=== PATIENT | female | born 1985 | race Caucasian/White ===

== ENCOUNTER 2021-02-14 08:27 | Outpatient (CLI) | payer MEDICARE, MEDICAID, SELFPAY ==
--- NOTE | 2021-02-14 08:45 | MR_ITS ---
WS: [id number] MRI CERVICAL SPINE with and without contrast. HISTORY: M48.00 - Spinal stenosis, site unspecified COMPARISON: None available. Technique: Multiplanar, multisequence pre and post contrast imaging of the cervical spine. Mild straightening of the normal cervical lordosis. No marrow edema or fracture. Signal within the cervical cord is normal. Visualized posterior fossa is unremarkable. Craniocervical junction, C1 and C2 relationship, odontoid process and soft tissues are normal. C2-C3: Normal. C3-C4: Shallow central disc protrusion. C4-C5: There is o small RIGHT paracentral disc protrusion with slight contact and deformity the ventr al thecal sac. Small bilateral foraminal osteophytes with mild stenosis. C5-C6: Shallow central disc protrusion and mild disc bulging and osteophytosis. C6-C7: Mild annular disc bulging. No stenosis. C7-T1: Tiny central disc protrusion. Paravertebral soft tissues are normal. No adenopathy. No enhancing masses are identified. On the post contrast imaging no enhancing masses are identified. Normal signal within the cord and vertebral bodi es. MR/MR cervical spine wo/w [id number] IMPRESSION: 1. No significant central stenosis. 2. No enhancing masses. 3. RIGHT paracentral disc protrusion contacting the RIGHT lateral thecal sac w ith mild stenosis. 4. Mild bilateral foraminal stenosis at C4-5 due to disc osteophyte disease.
--- NOTE | 2021-02-14 09:30 | MR_ITS ---
WS: [id number] MRI LUMBAR SPINE WITH AND WITHOUT CONTRAST. HISTORY: M48.00 - Spinal stenosis, site unspecified. History of chordoma removed. Six-month checkup. Bilateral leg numbness and tingling. COMPARISON: None available. TECHNIQUE: Sagittal and axial multisequence imaging is submitted. Postcontrast postcontrast imaging a lso performed. Normal lumbar alignment. There is increased T1 and T2 signal within L2, L3 and L4. Although no histor y was provided this may be secondary to fatty marrow replacement from radiation treatment. There is n o significant amount of enhancement. On the postcontrast images there is some very minimal enhancemen t within the L3 and L4 vertebral bodies. Mild disc space narrowing and desiccation at L3-4 and L4-5. Conus terminates normally at L1-2 disc level. L1-L2: Normal. L2-L3: Normal. L3-L4: Mild annular disc bulging with ligamentum flavum and facet arthritis. There is fluid in the RI GHT facet joint. Moderate narrowing of the LEFT foramen. Suspect there is a disc protrusion in the LE FT foramen contributing to the stenosis. L4-L5: Mild annular disc bulge with a central disc protrusion. Disc protrusion and bulging is contact ing the L5 nerve root but not displacing the nerve roots. Mild ligamentum flavum hypertrophy and face t arthritis. Very mild narrowing of the foramen. L5-S1: Mild annular disc bulge without stenosis. On the postcontrast imaging there is no enhancement within the thecal sac or in the epidural region. No lymph nodes noted in the visualized retroperitoneum. Cystic mass noted in the LEFT adnexa measures 3.0 cm. MR/MR lumbar spine wo/w con [id number] IMPRESSION: 1. As per history prior surgery for chordoma. There are no prior studies avail able for comparison or review. 2. Marrow fatty replacement changes in L2, L3 and L4 probably from prior radia tion. Again, this history of prior treatment has not been provided. 3. No enhancing masses are identified. 4. Moderate LEFT foraminal narrowing at L3-4 with a suspected disc protrusion in the LEFT foramen. 5. Mild disc contact on the L5 nerve roots bilaterally without significant ana maria nosis. 6. Mild central disc protrusion at L4-5. 7. If prior imaging studies become available for review an addendum can be sub mitted. Recommend continue MRI serial follow-up.
[2021-02-14] MEDS: gadobenate dimeglumine 20 mL vial IV (10:03)
== END 2021-02-14 08:28 | disposition home or self-care (01) ==
PROVIDERS: Visit Provider Family Medicine
DX: M51.26 Other intervertebral disc displacement, lumbar region (principal); M50.20 Other cervical disc displacement, unspecified cervical region; M48.02 Spinal stenosis, cervical region; M25.78 Osteophyte, vertebrae
CPT/HCPCS: 72156; 72158; A9577

== ENCOUNTER 2021-02-14 19:15 | Emergency (ER) | payer MEDICARE, MEDICAID, SELFPAY ==
[2021-02-14 19:24] VITALS: BP 137/95; PULSE 86; RESP 18; TEMP 36.4; O2SAT 98; BMI 45.7
--- NOTE | 2021-02-14 19:29 | XRR_ITS ---
PROCEDURE INFORMATION: Exam: XR Right Foot Exam date and time: 02/14/2021 7:32 PM Age: 36 years old Clinical indication: Patient HX: Right foot pain x today, no known injury. HX spinal cancer. TECHNIQUE: Imaging protocol: XR Right foot. Views: 3 or more views. COMPARISON: No relevant prior studies available. FINDINGS: Bones/joints: No acute fractures. Joint spaces have anatomic alignment. There is a corticated bone fragment at the dorsal margin of the navicular bone which may represent sequela of old trauma or arthritis. No bone erosion. Soft tissues: Normal. XR/XR foot RT min 3V* [id number] IMPRESSION: No acute findings.
--- NOTE | 2021-02-14 19:31 | W.ED.EXTPRO ---
HPI - Extremity Problem General: Chief complaint: Extremity Injury, Lower Stated complaint: foot pain Time Seen by Provider: 02/14/21 19:27 History of Present Illness: HPI Narrative: 36-year-old female comes in today with complaints of right foot pain. Patient reports inability to bear weight due to pain. Patient does have a history of a prior fracture to the foot. Patient also has a history of spinal cancer. Patient reports no injury just awakened this morning and was unable to bear weight due to pain. Patient reports this is similar to the previous episode she had when she had fractured her foot before. MD Complaint: extremity pain Pain Consistency: intermittent Location: right and lower extremity Quality: aching Radiation: proximal Relieving factors: rest Exacerbating factors: weight bearing Associated symptoms: Reports no associated symptoms Review of Systems General: Reports: 10 or more systems reviewed and unremarkable except in HPI and below Musc: Reports: other (Right foot pain.) [facility] PFSH: Medical History (Updated 02/14/21 @ 20:21 by BRADY Garcia) Depression Gastro-esophageal reflux disease without esophagitis Hypertension Hypothyroidism Normal colonoscopy (~2011) Obesity Spinal stenosis Surgical History (Updated 01/01/21 @ 15:51 by Padmini Laird MD) H/O gastric bypass (~2011) History of augmentation of right breast (~2001) History of back surgery (~2010) History of cholecystectomy (~2003) History of tubal ligation (~2014) Physical Exam Const: COMMON NORMALS: no acute distress and patient oriented x3 GENERAL APPEARANCE: cooperative HENMT: COMMON NORMALS: normocephalic and Normal external nose present HEAD & SCALP: normal to inspection and normocephalic NOSE: Normal external nose present MOUTH: Normal oral and palatal mucosa present Neck/C-Spine: COMMON NORMALS: full ROM Chest: COMMONS NORMALS: normal inspection of the chest Resp: COMMON NORMALS: normal respiratory effort EFFORT & INSPECTION: Yes able to speak in complete sentences Cardio: COMMON NORMALS: regular rate and regular rhythm RATE: regular rate RHYTHM: regular rhythm Extremity: NARRATIVE EXTREMITY EXAM: Tenderness noted to the sole of the right foot at the base of the calcaneus. Neuro: COMMON NORMALS: patient oriented x3 and moves all extremities Psych: COMMON NORMALS: mental status grossly normal and cooperative Skin: COMMON NORMALS: no rashes or lesions noted GENERAL SKIN EXAM: no rashes or lesions noted Course Vital Signs: Vital signs: Vital Signs Temperature 97.6 F 02/14/21 19:24 Pulse Rate 85 02/14/21 19:59 Respiratory Rate 16 02/14/21 19:59 Blood Pressure 129/97 02/14/21 19:59 Pulse Oximetry 100 02/14/21 19:59 MDM - Extremity (Nontraumatic) MDM Narrative: Medical decision making narrative: Patient comes in for evaluation of right foot pain. On exam there is notes no sign of ecchymosis or swelling. Tenderness is noted to the medial bottom of the foot. Differential diagnosis includes fracture, sprain, arthralgia. X-ray noted no acute fractures. Reviewed exam with patient with recommendations for treatment and follow-up. Patient reported understanding. Discharge Plan Discharge Patient Disposition: Home Clinical Impression: Acute pain of right foot Condition: Stable Prescriptions: No Action tizanidine 4 mg tablet 4 mg PO TID PRN (Reason: muscle spasticity) Qty: 90 RF: 4 lidocaine 5 % ointment 1 applic topical TID Qty: 35.44 RF: 3 oxycodone 10 mg tablet 10 mg PO BID PRN (Reason: pain) 30 Days Qty: 60 RF: 0 gabapentin 800 mg tablet 800 mg PO TID@07,,19 RF: 0 Synthroid 50 mcg tablet 50 mcg PO DAILY@0700 RF: 0 Singulair 10 mg tablet 10 mg PO DAILY@1900 RF: 0 hydrochlorothiazide 25 mg tablet 25 mg PO DAILY@0700 RF: 0 Claritin 10 mg tablet 10 mg PO DAILY@0700 RF: 0 duloxetine 60 mg capsule,delayed release(DR/EC) 60 mg PO BID@0700,1900 RF: 0 cholecalciferol (vitamin D3) 1,250 mcg (50,000 unit) capsule See Rx Instructions .ROUTE .COMPLEX RF: 0 Discharge Orders: Discharge ED (Routine); Ordered 02/14/21 Ordered By: Renzo Arambula Discharge Diet: Usual diet Discharge Activity: Increase activity as tolerated Patient Instructions: Arthralgia (ED), Opioid Safety Activity Restrictions/Additional Instructions: Use crutches until he can bear weight comfortably on the foot. Wear good supportive shoe or the postop shoe for protection of the foot. Use acetaminophen and ibuprofen for pain. Use ice for further pain relief. Follow-up with primary care as needed for further recommendations. Return to the emergency department for new concerns. Coding Level of Care Code ED Pickling Machine Operator for Chg Fwd Exam Comprehensive
[2021-02-14 19:59] VITALS: BP 129/97; PULSE 85; RESP 16; O2SAT 100
== END 2021-02-14 21:32 | disposition home or self-care (01) ==
PROVIDERS: Emergency Provider Nurse Practitioner Family
DX: M79.671 Pain in right foot (principal); I10 Essential (primary) hypertension
CPT/HCPCS: 73630; 99282; L4361

== ENCOUNTER 2021-03-05 14:49 | Outpatient (CLI) | payer MEDICARE, MEDICAID, SELFPAY ==
--- NOTE | 2021-03-05 14:59 | MR_ITS ---
WS: [id number] INDICATION: Right foot pain for 2 weeks TECHNIQUE: MR of the right foot without gadolinium enhancement sagittal PD, axial T1, axial PD, axial T2, axial STIR, sagittal STIR, sagittal T1 fat sat. Coronal PD and coronal T2 fat sat. Some images d egraded by patient motion. FINDINGS: Normal ankle mortise. Normal medial and lateral malleolus. Normal talar dome. Metatarsals a re normal in appearance. Distal Achilles is normal in appearance. Normal plantar aponeurosis. Normal talocalcaneal and talonavicular articulation. Hypertrophic spurring at the dorsal navicular. Cuboid i s normal in appearance. Extensor and flexor compartment tendons appear normal. Normal peroneal tendon sheaths. Mild degenerative arthritis in the midfoot and forefoot. No other significant findings. MR/MR foot RT wo con* [id number] IMPRESSION: 1. Moderate diffuse soft tissue edema right ankle. 2. Normal ankle mortise. Normal bone marrow signal in the medial and lateral m alleolus. No acute fractures. 3. Distal Achilles is normal in appearance. 4. Normal extensor and flexor compartment tendons. 5. Dorsal hypertrophic spurring at the navicular. 6. Moderate degenerative arthritis in the midfoot and forefoot. 7. No other significant findings.
== END 2021-03-05 14:50 | disposition home or self-care (01) ==
PROVIDERS: Visit Provider Family Medicine
DX: M79.671 Pain in right foot (principal); M19.071 Primary osteoarthritis, right ankle and foot; R60.0 Localized edema
CPT/HCPCS: 73718

== ENCOUNTER → 2021-03-20 10:39 | Outpatient (BNVA) | payer MEDICARE, MEDICAID, SELFPAY | PROVIDERS: PCP Family Medicine; Referring Provider Family Medicine; Visit Provider Anesthesiology | DX: M54.5 Low back pain (principal); C41.2 Malignant neoplasm of vertebral column; M48.00 Spinal stenosis, site unspecified; M54.9 Dorsalgia, unspecified; M21.371 Foot drop, right foot; Z98.890 Other specified postprocedural states; F17.210 Nicotine dependence, cigarettes, uncomplicated; Z79.891 Long term (current) use of opiate analgesic; Z71.6 Tobacco abuse counseling | CPT/HCPCS: 99204 ==

== ENCOUNTER → 2021-04-05 10:42 | Outpatient (BNVA) | payer MEDICARE, MEDICAID, SELFPAY | PROVIDERS: PCP Family Medicine; Visit Provider Family Medicine | DX: G43.909 Migraine, unspecified, not intractable, without status migrainosus (principal); E55.9 Vitamin D deficiency, unspecified; I10 Essential (primary) hypertension; E03.9 Hypothyroidism, unspecified; K58.1 Irritable bowel syndrome with constipation | CPT/HCPCS: 80053; 80061; 82306; 84443; 85025 ==

== ENCOUNTER → 2021-04-18 14:02 | Outpatient (BNVA) | payer MEDICARE, MEDICAID, SELFPAY | PROVIDERS: PCP Family Medicine; Visit Provider Anesthesiology | DX: M54.5 Low back pain (principal); M48.00 Spinal stenosis, site unspecified; M21.371 Foot drop, right foot; Z79.891 Long term (current) use of opiate analgesic; Z98.890 Other specified postprocedural states | CPT/HCPCS: 99213 ==

== ENCOUNTER 2021-04-24 06:00 | Outpatient (RCR) | payer MEDICARE, MEDICAID, SELFPAY | END 2021-05-15 23:59 | disposition home or self-care (01) | LOC: TPT 06:00 | PROVIDERS: PCP Family Medicine; Referring Provider Podiatrist Foot & Ankle Surgery; Visit Provider Podiatrist Foot & Ankle Surgery | DX: M21.371 Foot drop, right foot (principal) | CPT/HCPCS: 97110; 97116; 97162 ==

== ENCOUNTER → 2021-04-27 10:27 | Outpatient (BNVA) | payer MEDICARE, MEDICAID, SELFPAY | PROVIDERS: PCP Family Medicine; Visit Provider Nurse Practitioner Family | DX: D64.9 Anemia, unspecified (principal) | CPT/HCPCS: 85025 ==

== ENCOUNTER 2021-05-11 05:37 | Outpatient (RCR) | payer MEDICARE, MEDICAID, SELFPAY ==
[2021-05-01 14:55] LABS: Alanine Aminotransferase 9 U/L (0-33); Albumin Level 3.8 g/dL (3.5-5.2); Alkaline Phosphatase 103 IU/L (35-105); Anion Gap 13.7 (5-19); Aspartate Amino Transferase 12 U/L (0-32); Blood Urea Nitrogen 16 mg/dL (6-20); Calcium 8.9 mg/dL (8.5-10.5); Carbon Dioxide 21 mmol/L (22-29); Chloride 103 mmol/L (98-107); Ferritin 7 ng/mL (15-150); Globulin 3.1 g/dL (1.3-4.6); Glomerular Filtration Rate 80.3 mL/min (90-130); Glucose 78 mg/dL (65-115); Iron 19 ug/dL (37-145); Osmolality Calculated 278 mOsm/kg (285-295); Percent Saturation 4.8 % (20-50); Potassium 3.7 mmol/L (3.5-5.1); Sodium 134 mmol/L (136-145); Total Bilirubin 0.2 mg/dL (0.15-1.2); Total Iron Binding Capacity 394 mcg/dl; Total Protein 6.9 g/dL (6.6-8.7); Unsaturated Iron Binding 375 ug/dL (112-347)
[2021-05-01 15:06] LABS: Basophils # 0.1 10^3/uL (0.0-0.1); Basophils % 0.6 %; Eosinophils # 0.1 10^3/uL (0.0-0.8); Eosinophils % 1.1 %; Hematocrit 29.5 % (37.0-47.0); Hemoglobin 8.7 g/dL (11.5-15.3); Lymphocytes # 2.8 10^3/uL (0.8-4.8); Lymphocytes % 25.9 %; Mean Corpuscular HGB Conc 29.5 g/dL (30.0-36.0); Mean Corpuscular Hemoglobin 23.4 pg (28.0-34.0); Mean Corpuscular Volume 79.3 fl (81-99); Mean Platelet Volume 10.8 fL (7.4-10.4); Monocytes # 0.8 10^3/uL (0.2-0.9); Monocytes % 7.1 %; Neutrophils # 6.89 10^3/uL (1.8-7.7); Neutrophils % 64.9 %; Nucleated Red Blood Cells % 0 %; Platelet Count 296 10^3/cmm (130-400); Red Blood Count 3.72 10^6/uL (4.1-5.3); Red Cell Distribution Width 17.2 % (12.1-15.1); White Blood Count 10.6 10^3/uL (4.0-10.0)
[2021-05-01 15:09] LABS: Vitamin B12 222 pg/mL (232-1245)
[2021-05-01 15:11] LABS: Folate Level 3.5 ng/mL (4.8-37.3)
--- NOTE | 2021-05-01 17:05 | ONC CON_ITS ---
Dr. Llanos New Patient Note Patient: Gin Correa Unit #: [id number]: [id number] Dicatated By: Jan Llanos M.D.Date of Visit: May 01, 2021 Onc MED New Patient/Consult Referring Physician: Dr. MEGA CORTES D.O. History of Present Illness: Ms. Gin Correa, is a 36-year-old female with history of gastric bypass surgery in 2011 for weight reduction, as per patient subsequently she developed anemia required iron infusion in 2014 and then again in 2016, patient was also on parenteral B12 supplement till November 2020, then she moved to [place] from [place],. As per patient she has been feeling weak and tired which is progressive in nature and now by the end of the day she feels exhausted and also experience pins-like feeling in her feet, feel better when she is off the feet. 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, as per patient she is scheduled to see physician in June 2021. Patient also has history of dysfunctional uterine bleeding, as per patient she usually has menstrual periods twice a month but denies any melena or hematochezia denies any hemoptysis or hematemesis denies any jaundice denies any night sweats denies any recurrent fever denies any peripheral lymphadenopathy or abdominal fullness denies any hematuria or dysuria Denies any numbness and fingertips, denies any chest pain but dyspnea exertion and palpitation on exertion^ Smoke about half a pack a day and consume alcohol occasionally] Past Medical History: Ms. Ashton medical history consists of back pain, chordoma, depression, gastroesophageal reflux disease, hypertension, hypothyroidism, right foot drop, and spinal stenosis. Past Surgical History: Ms. Ashton surgical/procedural history consists of tubal ligation in 2014, gastric bypass in 2011, back surgery in 2010, cholecystectomy in 2003, and right breast augmentation in 2001. Medications: Atenolol (25 mg) Tablet Oral daily, Cholecalciferol Capsule Oral on ,, DULoxetine HCl (60 mg) Capsule Delayed Release Particles Oral b.i.d., Esomeprazole Magnesium (40 mg) Capsule Delayed Release Oral daily, Gabapentin (800 mg) Tablet Oral four times a day, hydroCHLOROthiazide (12.5 mg) Tablet Oral daily, Levothyroxine Sodium (50 mcg) Tablet Oral daily, Lidocaine (0.5 %) Gel (jelly) Topical t.i.d., Linzess (145 mcg) Capsule Oral daily, Loratadine (10 mg) Capsule Oral daily, Montelukast Sodium (10 mg) Tablet Oral daily, oxyCODONE HCl (10 mg) Tablet Oral b.i.d. PRN, tiZANidine HCl (4 mg) Tablet Oral t.i.d. PRN, Topiramate (100 mg) Tablet Oral daily Allergies: Aspirin, Cephalexin, fentaNYL, and Ondansetron HCl. Social History: Ms. Correa is . She is a daily smoker who smokes 0.5 packs/day. She has no history of drinking. She has indicated exposure to the following products: cigarettes. Family History: Ms. Correa's mother is alive. Ms. Correa's father is alive. Ms. Correa has 2 brothers: 2 alive. She has 2 sisters: 2 alive. Review Of Symptoms: Review of Systems is not available for this patient. Vital Signs: Performed on May 01, 2021 16:26: 8, 5, 48.33 (HIGH), 2.10 sq.m, 61 in, 97 %, 84 /min, 18 /min, 117/76 mm(hg), 96.3 F (LOW), and 255.8 lbs (HIGH). Performance Status: 0 - Fully active, able to carry on all predisease activities without restrictions. (ECOG) Physical Examination: ENMT - No mouth sores, no thrush, no jaundice no cervical lymphadenopathy, Respiratory - Lungs are clear to auscultation, Cardiovascular - Regular rate and rhythm of heart, Abdomen - Soft, bowel sounds present, Extremities - No visible edema. Lab/Imaging: Most recent lab results are not available for this patient. 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 Other possibility could be chronic blood loss due to dysfunctional uterine bleeding. B12 deficiency, again due to malabsorption due to gastric bypass. 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 Chronic back pain, now being followed in pain clinic History of augmentation of right breast History of tubal ligation Hypothyroidism Right foot drop/spinal stenosis Probably due to chordoma involving L2-4 or related surgery Plan: Discussed with patient regarding her labs white blood count 10.6 hemoglobin 8.7 g medical 29.5 platelets 296,000 MCV 79.3 with a normal differential CMP within normal limit except sodium 134 iron studies shows ferritin 7, iron saturation 4.8%, iron 19, TIBC 394, vitamin B12 222 Clinically, patient doing reasonably well now with mild to moderate symptoms due to progressive iron deficiency anemia which is multifactorial including 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 Patient was advised to quit smoking and was offered any assistance she may need As far as dysfunctional uterine bleeding is concerned, will refer her to OCCUPATIONAL THERAPY PROFESSOR for evaluation, patient said she had colonoscopy done in the last 5 to 7 years and it was unremarkable, will also check her stool for occult bleeding if it is positive, will consider colonoscopy/EGD evaluation., Patient was advised to take it easy until her iron stores and B12 stores replenished. Signed By: Jan Llanos M.D. <<Signature on File>>
[2021-05-04] MEDS: cyanocobalamin 1,000 mcg/mL SDV 1000 MCG SUBCUT (10:40)
[2021-05-04] MEDS: ferric carboxy (PYXIS) 750 mg/15 mL INJ IV (10:40)
[2021-05-04] MEDS: sodium chloride 0.9% 100 mL Bag IV (10:40)
[2021-05-08 21:17] LABS: Copper Level 161 mcg/dL (70-175); Zinc Level, Serum or Plasma 67 mcg/dL (60-130)
[2021-05-11] MEDS: ferric carboxy (PYXIS) 750 mg/15 mL INJ IV (09:15)
[2021-05-11] MEDS: sodium chloride 0.9% (100 ml) 100 ML 540 ML (09:15)
[2021-05-11] MEDS: sodium chloride 0.9% (100 ml) 100 ML 375 ML IV (09:15)
[2021-05-11] MEDS: cyanocobalamin 1,000 mcg/mL SDV 1000 MCG IM (09:17)
== END 2021-05-15 23:59 | disposition home or self-care (01) ==
LOC: ONCMED 05:37
PROVIDERS: PCP Family Medicine; Visit Provider Internal Medicine Hematology & Oncology
DX: D50.9 Iron deficiency anemia, unspecified (principal); D51.9 Vitamin B12 deficiency anemia, unspecified; K90.9 Intestinal malabsorption, unspecified; G62.9 Polyneuropathy, unspecified; M54.5 Low back pain; G89.29 Other chronic pain; E03.9 Hypothyroidism, unspecified; M21.371 Foot drop, right foot; M48.061 Spinal stenosis, lumbar region without neurogenic claudication; Z90.11 Acquired absence of right breast and nipple; Z79.899 Other long term (current) drug therapy
CPT/HCPCS: 36415; 80053; 82525; 82607; 82728; 82746; 83540; 83550; 84630; 85025; 96365; 96372; 96374; 99204; J1439; J3420

== ENCOUNTER 2021-05-25 05:51 | Outpatient (RCR) | payer MEDICARE, MEDICAID, SELFPAY ==
[2021-05-18] MEDS: cyanocobalamin 1,000 mcg/mL SDV 1000 MCG IM (11:15)
[2021-05-25] MEDS: cyanocobalamin 1,000 mcg/mL SDV 1000 MCG SUBCUT (11:30)
== END 2021-06-14 23:59 | disposition home or self-care (01) ==
LOC: ONCMED 05:51
PROVIDERS: PCP Family Medicine; Visit Provider Internal Medicine Hematology & Oncology
DX: D50.9 Iron deficiency anemia, unspecified (principal); D51.9 Vitamin B12 deficiency anemia, unspecified; Z79.899 Other long term (current) drug therapy
CPT/HCPCS: 96372; J3420

== ENCOUNTER → 2021-05-29 11:18 | Outpatient (BNVA) | payer MEDICARE, MEDICAID, SELFPAY | PROVIDERS: PCP Family Medicine; Referring Provider Internal Medicine Hematology & Oncology; Visit Provider Nurse Practitioner Women's Health | DX: N93.9 Abnormal uterine and vaginal bleeding, unspecified (principal); R10.2 Pelvic and perineal pain; D50.8 Other iron deficiency anemias; C41.0 Malignant neoplasm of bones of skull and face | CPT/HCPCS: 88175 ==

== ENCOUNTER → 2021-06-08 08:59 | Outpatient (BNVA) | payer MEDICARE, MEDICAID, SELFPAY | PROVIDERS: PCP Family Medicine; Visit Provider Nurse Practitioner Women's Health | DX: N93.9 Abnormal uterine and vaginal bleeding, unspecified (principal) | CPT/HCPCS: 76830 ==

== ENCOUNTER → 2021-06-13 08:16 | Outpatient (BNVA) | payer MEDICARE, MEDICAID, SELFPAY | PROVIDERS: PCP Family Medicine; Visit Provider Anesthesiology | DX: M54.5 Low back pain (principal); M48.00 Spinal stenosis, site unspecified; M21.371 Foot drop, right foot; Z98.890 Other specified postprocedural states; F17.210 Nicotine dependence, cigarettes, uncomplicated; Z79.891 Long term (current) use of opiate analgesic | CPT/HCPCS: 99213 ==

== ENCOUNTER → 2021-06-21 10:16 | Outpatient (BNVA) | payer MEDICARE, MEDICAID, SELFPAY | PROVIDERS: PCP Family Medicine; Visit Provider Nurse Practitioner Women's Health | DX: N93.9 Abnormal uterine and vaginal bleeding, unspecified (principal) | CPT/HCPCS: 88305 ==

== ENCOUNTER 2021-06-22 06:31 | Outpatient (RCR) | payer MEDICARE, MEDICAID, SELFPAY ==
[2021-06-22 09:53] LABS: Basophils # 0.1 10^3/uL (0.0-0.1); Basophils % 0.5 %; Eosinophils # 0.1 10^3/uL (0.0-0.8); Eosinophils % 1.2 %; Hematocrit 43.5 % (37.0-47.0); Hemoglobin 13.8 g/dL (11.5-15.3); Lymphocytes # 2.5 10^3/uL (0.8-4.8); Lymphocytes % 24.6 %; Mean Corpuscular HGB Conc 31.7 g/dL (30.0-36.0); Mean Corpuscular Hemoglobin 28.8 pg (28.0-34.0); Mean Corpuscular Volume 90.8 fl (81-99); Mean Platelet Volume 10.8 fL (7.4-10.4); Monocytes # 0.6 10^3/uL (0.2-0.9); Monocytes % 6.2 %; Neutrophils # 6.89 10^3/uL (1.8-7.7); Neutrophils % 67.2 %; Nucleated Red Blood Cells % 0 %; Platelet Count 272 10^3/cmm (130-400); Red Blood Count 4.79 10^6/uL (4.1-5.3); Red Cell Distribution Width 23.1 % (12.1-15.1); White Blood Count 10.2 10^3/uL (4.0-10.0)
[2021-06-22 10:36] LABS: Ferritin 189 ng/mL (15-150); Iron 59 ug/dL (37-145); Percent Saturation 22.5 % (20-50); Total Iron Binding Capacity 262 mcg/dl; Unsaturated Iron Binding 203 ug/dL (112-347)
[2021-06-22 10:51] LABS: Vitamin B12 430 pg/mL (232-1245)
--- NOTE | 2021-06-22 12:34 | ONC FU_ITS ---
Dr. Llanos follow up note Patient: Gin Correa Unit #: [id number]: [id number] Dicatated By: Jan Llanos M.D.Date of Visit:Jun 22, 2021 Onc Med Follow-up/Prog Note History of Present Illness: Ms. Gin Correa, is a 36-year-old female with history of gastric bypass surgery in 2011 for weight reduction, as per patient subsequently she developed anemia required iron infusion in 2014 and then again in 2016, patient was also on parenteral B12 supplement till November 2020, then she moved to [place] from [place],. As per patient she has been feeling weak and tired which is progressive in nature and now by the end of the day she feels exhausted and also experience pins-like feeling in her feet, feel better when she is off the feet. 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 Patient also has history of dysfunctional uterine bleeding, as per patient she usually has menstrual periods twice a month but denies any melena or hematochezia denies any hemoptysis or hematemesis denies any jaundice denies any night sweats denies any recurrent fever denies any peripheral lymphadenopathy or abdominal fullness denies any hematuria or dysuria Denies any numbness and fingertips, denies any chest pain but dyspnea exertion and palpitation on exertion Came for follow-up, denies any specific complaints, more energetic since parenteral iron infusion. Patient recently underwent [employer] evaluation for dysfunctional uterine bleeding, recently underwent endometrial biopsy, report is pending, as per patient she was offered progesterone to control vaginal bleeding but now she is considering hysterectomy. Medications: Atenolol (25 mg) Tablet Oral daily, Cholecalciferol Capsule Oral on ,Farah, DULoxetine HCl (60 mg) Capsule Delayed Release Particles Oral b.i.d., Esomeprazole Magnesium (40 mg) Capsule Delayed Release Oral daily, Gabapentin (800 mg) Tablet Oral four times a day, hydroCHLOROthiazide (12.5 mg) Tablet Oral daily, Levothyroxine Sodium (50 mcg) Tablet Oral daily, Lidocaine (0.5 %) Gel (jelly) Topical t.i.d., Linzess (145 mcg) Capsule Oral daily, Loratadine (10 mg) Capsule Oral daily, Montelukast Sodium (10 mg) Tablet Oral daily, oxyCODONE HCl (10 mg) Tablet Oral b.i.d. PRN, tiZANidine HCl (4 mg) Tablet Oral t.i.d. PRN, Topiramate (100 mg) Tablet Oral daily Allergies: Aspirin, Cephalexin, fentaNYL, and Ondansetron HCl. Review of Systems: Review of Systems is not available for this patient. Vital Signs: Performed on Jun 22, 2021 09:47 Height - 61.00 in Weight - 246.6 lbs (LOW) BSA - 2.06 sq.m BMI - 46.59 (HIGH) Temperature - 97.3 F (LOW) Pulse - 70 /min Respiration - 18 /min BP - 114/80 mm(hg) O2 Sat - 99 % Pain - 6 Fatigue - 7 Performance Status: 0 - Fully active, able to carry on all predisease activities without restrictions. (ECOG) Physical Examination: ENMT - No mouth sores, no thrush, no jaundice, Respiratory - Lungs are clear to auscultation, Cardiovascular - Regular rate and rhythm of heart, Abdomen - Soft, bowel sounds present, Extremities - No visible edema. Lab/Imaging: Most recent lab results are not available for this patient. 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 Other possibility could be chronic blood loss due to dysfunctional uterine bleeding. B12 deficiency, again due to malabsorption due to gastric bypass. 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 Chronic back pain, now being followed in pain clinic History of augmentation of right breast History of tubal ligation Hypothyroidism Right foot drop/spinal stenosis Probably due to chordoma involving L2-4 or related surgery Plan: Discussed with patient regarding her labs white blood count 10.2 hemoglobin 13.8 hematocrit 43.5 platelets 272,000 iron studies shows iron saturation 22.5% compared to 4.8% prior to iron infusion ferritin 189 compared to 7 prior to infusion iron 59 TIBC 262, B12 430, zinc level was 67 copper was 161 Clinically, patient doing well, more energetic since Injectafer infusion, follow-up labs shows resolution of iron deficiency anemia, iron stores adequate, At this point, we will monitor her H&H and iron stores, patient will continue with B12 supplement on monthly basis and return to clinic in 2 months with CBC iron studies and B12 level As far as history of excessive vaginal bleeding is concerned, no hysterectomy is under consideration. 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 <<Signature on File>>
== END 2021-07-15 23:59 | disposition home or self-care (01) ==
LOC: ONCMED 06:31
PROVIDERS: PCP Family Medicine; Visit Provider Internal Medicine Hematology & Oncology
DX: D50.9 Iron deficiency anemia, unspecified (principal); K90.9 Intestinal malabsorption, unspecified; D51.9 Vitamin B12 deficiency anemia, unspecified; G62.9 Polyneuropathy, unspecified; F17.210 Nicotine dependence, cigarettes, uncomplicated; E03.9 Hypothyroidism, unspecified; M21.371 Foot drop, right foot; Z85.89 Personal history of malignant neoplasm of other organs and systems; Z87.19 Personal history of other diseases of the digestive system; Z90.11 Acquired absence of right breast and nipple; Z98.51 Tubal ligation status
CPT/HCPCS: 36415; 82607; 82728; 83540; 83550; 85025; 96372; 99215; J3420

== ENCOUNTER → 2021-08-06 09:21 | Outpatient (BNVA) | payer MEDICARE, MEDICAID, SELFPAY | PROVIDERS: PCP Family Medicine; Visit Provider Obstetrics & Gynecology | DX: R32 Unspecified urinary incontinence (principal) | CPT/HCPCS: 81000 ==

== ENCOUNTER → 2021-08-15 12:38 | Outpatient (BNVA) | payer MEDICARE, MEDICAID, SELFPAY | PROVIDERS: PCP Family Medicine; Visit Provider Anesthesiology | DX: M54.50 Low back pain, unspecified (principal); M48.00 Spinal stenosis, site unspecified; E66.9 Obesity, unspecified; Z98.890 Other specified postprocedural states; Z68.42 Body mass index [BMI] 45.0-49.9, adult; Z79.891 Long term (current) use of opiate analgesic; F17.200 Nicotine dependence, unspecified, uncomplicated | CPT/HCPCS: 99213; 99214 ==

== ENCOUNTER 2021-09-25 13:22 | Outpatient (CLI) | payer MEDICARE, MEDICAID, SELFPAY ==
[2021-09-25 13:59] LABS: Basophils % 0.4 %; Eosinophils # 0.1 10^3/uL (0.0-0.8); Eosinophils % 1.1 %; Hematocrit 36.9 % (37.0-47.0); Hemoglobin 12.2 g/dL (11.5-15.3); Lymphocytes % 28.8 %; Mean Corpuscular HGB Conc 33.1 g/dL (30.0-36.0); Mean Corpuscular Hemoglobin 33.3 pg (28.0-34.0); Mean Corpuscular Volume 100.8 fl (81-99); Monocytes # 0.6 10^3/uL (0.2-0.9); Monocytes % 5.5 %; Neutrophils % 63.8 %; Nucleated Red Blood Cells % 0 %; Platelet Count 287 10^3/cmm (130-400); Red Blood Count 3.66 10^6/uL (4.1-5.3); White Blood Count 10.3 10^3/uL (4.0-10.0)
[2021-09-25 14:24] LABS: Alanine Aminotransferase 26 U/L (0-33); Albumin Level 4.1 g/dL (3.5-5.2); Alkaline Phosphatase 84 IU/L (35-105); Anion Gap 16.4 (5-19); Aspartate Amino Transferase 17 U/L (0-32); Blood Urea Nitrogen 14 mg/dL (6-20); Calcium 9.7 mg/dL (8.5-10.5); Carbon Dioxide 18 mmol/L (22-29); Chloride 108 mmol/L (98-107); Ferritin 117 ng/mL (15-150); Globulin 2.8 g/dL (1.3-4.6); Glomerular Filtration Rate 70.1 mL/min (90-130); Glucose 63 mg/dL (65-115); Iron 57 ug/dL (37-145); Osmolality Calculated 285 mOsm/kg (285-295); Percent Saturation 19.1 % (20-50); Potassium 4.4 mmol/L (3.5-5.1); Sodium 138 mmol/L (136-145); Total Bilirubin 0.2 mg/dL (0.15-1.2); Total Iron Binding Capacity 298 mcg/dl; Total Protein 6.9 g/dL (6.6-8.7); Unsaturated Iron Binding 241 ug/dL (112-347)
[2021-09-25 14:39] LABS: Vitamin B12 610 pg/mL (232-1245)
--- NOTE | 2021-09-25 16:10 | ONC FU_ITS ---
Dr. Llanos follow up note Patient: Gin Correa Unit #: [id number]: [id number] Dicatated By: Jan Llanos M.D.Date of Visit:Sep 25, 2021 Onc Med Follow-up/Prog Note History of Present Illness: Ms. Gin Correa, is a 36-year-old female with history of gastric bypass surgery in 2011 for weight reduction, as per patient subsequently she developed anemia required iron infusion in 2014 and then again in 2016, patient was also on parenteral B12 supplement till November 2020, then she moved to [place] from [place],. As per patient she has been feeling weak and tired which is progressive in nature and now by the end of the day she feels exhausted and also experience pins-like feeling in her feet, feel better when she is off the feet. 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 Patient also has history of dysfunctional uterine bleeding, as per patient she usually has menstrual periods twice a month but denies any melena or hematochezia denies any hemoptysis or hematemesis denies any jaundice denies any night sweats denies any recurrent fever denies any peripheral lymphadenopathy or abdominal fullness denies any hematuria or dysuria Denies any numbness and fingertips, denies any chest pain but dyspnea exertion and palpitation on exertion Came for follow-up, denies any specific complaints, no fever or chills, no nausea or vomiting, no diarrhea or constipation, tolerating parenteral monthly B12 supplement well, as per patient she is scheduled for hysterectomy on coming Friday. Denies any melena or hematochezia denies any mops hematemesis denies any jaundice denies any abdominal pain Medications: Atenolol (25 mg) Tablet Oral daily, Cholecalciferol Capsule Oral on ,Farah, DULoxetine HCl (60 mg) Capsule Delayed Release Particles Oral b.i.d., Esomeprazole Magnesium (40 mg) Capsule Delayed Release Oral daily, Gabapentin (800 mg) Tablet Oral four times a day, hydroCHLOROthiazide (12.5 mg) Tablet Oral daily, Levothyroxine Sodium (50 mcg) Tablet Oral daily, Lidocaine (0.5 %) Gel (jelly) Topical t.i.d., Linzess (145 mcg) Capsule Oral daily, Loratadine (10 mg) Capsule Oral daily, Montelukast Sodium (10 mg) Tablet Oral daily, oxyCODONE HCl (10 mg) Tablet Oral b.i.d. PRN, tiZANidine HCl (4 mg) Tablet Oral t.i.d. PRN, Topiramate (100 mg) Tablet Oral daily Allergies: Aspirin, Cephalexin, fentaNYL, and Ondansetron HCl. Review of Systems: Review of Systems is not available for this patient. Vital Signs: Performed on Sep 25, 2021 15:33 Height - 61.00 in Weight - 240.4 lbs (LOW) BSA - 2.04 sq.m BMI - 45.42 (HIGH) Temperature - 97.3 F (LOW) Pulse - 67 /min Respiration - 18 /min BP - 118/79 mm(hg) O2 Sat - 99 % Pain - 0 Fatigue - 5 Performance Status: 0 - Fully active, able to carry on all predisease activities without restrictions. (ECOG) Physical Examination: ENMT - No mouth sores, no sore throat, no jaundice, Respiratory - Lungs are clear to auscultation, Cardiovascular - Regular rate and rhythm of heart, Abdomen - Soft, bowel sounds present, Extremities - No visible edema. Lab/Imaging: Most recent lab results are not available for this patient. 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 Other possibility could be chronic blood loss due to dysfunctional uterine bleeding. B12 deficiency, again due to malabsorption due to gastric bypass. 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 Patient is scheduled for hysterectomy for heavy menstrual periods. She will return to clinic in 3 months with CBC, iron studies and B12 level in the meantime she will continue with monthly B12 supplements. Signed By: Jan Llanos M.D. <<Signature on File>>
== END 2021-09-25 13:23 | disposition home or self-care (01) ==
PROVIDERS: PCP Family Medicine; Visit Provider Internal Medicine Hematology & Oncology
DX: D50.9 Iron deficiency anemia, unspecified (principal); G62.9 Polyneuropathy, unspecified; E03.9 Hypothyroidism, unspecified; F17.210 Nicotine dependence, cigarettes, uncomplicated; Z79.899 Other long term (current) drug therapy; Z98.84 Bariatric surgery status
CPT/HCPCS: 36415; 80053; 82607; 82728; 83540; 83550; 85025; 99214

== ENCOUNTER → 2021-09-27 08:42 | Outpatient (BNVA) | payer MEDICARE, MEDICAID, SELFPAY | PROVIDERS: PCP Family Medicine; Visit Provider Obstetrics & Gynecology | DX: Z20.822 Contact with and (suspected) exposure to COVID-19 (principal); N93.9 Abnormal uterine and vaginal bleeding, unspecified | CPT/HCPCS: 87635 ==

== ENCOUNTER 2021-10-03 13:41 | Observation (INO) | payer MEDICARE, MEDICAID, SELFPAY ==
[2021-10-01 11:43] VITALS: BMI 44.4
[2021-10-01 13:34] LABS: Anion Gap 17.9 (5-19); Blood Urea Nitrogen 19 mg/dL (6-20); Calcium 8.9 mg/dL (8.5-10.5); Carbon Dioxide 20 mmol/L (22-29); Chloride 103 mmol/L (98-107); Glomerular Filtration Rate 62.1 mL/min (90-130); Glucose 67 mg/dL (65-115); Osmolality Calculated 285 mOsm/kg (285-295); Potassium 3.9 mmol/L (3.5-5.1); Sodium 137 mmol/L (136-145)
--- NOTE | 2021-10-01 17:07 | ANES.PREANE2 ---
Pre-Anesthetic Assessment Pre-Anesthetic Assessment: Height/Weight: Height 1.55 m Weight 106.594 kg Proposed Procedure: Operation Date: 10/03/21 08:50 Proposed Procedures p Total Vaginal Hysterectomy 30057/N93.9(Not Applicable) - Nick Tong MD Was Beta Lopez taken within 24 hours: Yes Was Clonidine taken within 24 hours: N/A Social: Social History: No alcohol Exam: Pre-Anes Outpt Exam: alert, oriented x 3 and regular rate & rhythm Airway: Submandibular: WNL Cervical ROM: WNL MP: 2 Dentition: Chipped CV/HEM: CV/HEM: Anemia and HTN GI: GI: GERD Metabolic: Metabolic: Morbid obesity and Thyroid Neuropsych: Neuropsych: REDDY and Neuropathy Anesthetic Plan: ASA status: 3 Anesthesia: General Risk of > 500 ml blood loss (7ml/kg in children): No PFSH Anesthesia PFSH: Medical History Back pain with history of spinal surgery Chordoma of clivus [facility]--- Tom Bruner MD. Depression Encounter for long-term opiate analgesic use Gastro-esophageal reflux disease without esophagitis Hypertension Hypothyroidism No pertinent past medical history neghx: dm,dvt/pe PCP: Jolly Laird Obesity Opioid contract exists Right foot drop Spinal stenosis Surgical History H/O gastric bypass (~2011) History of augmentation of right breast (~2001) saline implant History of back surgery (~2010) History of cholecystectomy (~2003) History of tubal ligation (~2014) Normal colonoscopy (~2011) Family History Family/Other Breast cancer Maternal Aunt--dx age 30's Diabetes Maternal and Paternal side in general Ovarian cancer Maternal Aunt--dx age 40's Thyroid disease Maternal side in general Father Heart disease Stroke Grandfather Heart disease Paternal Mother Hypercholesteremia Hypertension Thyroid disease Denies family history of Colon cancer Uterine cancer Data Anesthesia CBC & Chem 7: 10/01/21 11:50 Other Labs: Laboratory Results - last 48 hr 10/01/21 11:50 Sodium 137 Potassium 3.9 Chloride 103 Carbon Dioxide 20 L Anion Gap 17.9 BUN 19 Creatinine 1.0 H GFR Calculation 62.1 L Glucose 67 Calculated Osmolality 285 Calcium 8.9 Cardiac Studies: No Data to Display
[2021-10-03] VITALS (16 sets, daily range): BP systolic 94–127; BP diastolic 54–91; PULSE 54–77; RESP 10–21; TEMP 36.2–36.8; O2SAT 97–100
[2021-10-03 10:09] LABS: Add Urine Microscopic? NO; Charge for UA Resulting for Rev
[2021-10-03 10:16] LABS: Bilirubin Urine 1+ (Negative); Blood Urine Neg (Negative); Glucose Urine UA Norm (Normal); Ketones Urine 1+ (Negative); Leukocyte Esterase Urine Negative (Negative); Nitrate Urine Negative (Negative); Protein Urine Neg (Negative); Urine Appearance Clear (CLEAR); Urine Color Yellow (Yellow); Urobilinogen Urine 4+ mg/dL (Negative); pH Urine 7 (5-7)
[2021-10-03 10:18] LABS: OR HCG Qualitative Urine Negative (Negative)
[2021-10-03] MEDS: sodium chloride 0.9% 1,000 ML 30 ML IV (10:26)
[2021-10-03] MEDS: sodium chloride 0.9% 500 ML IV (10:26)
[2021-10-03] MEDS: scopolamine 1.5 Patch 1 PATCH TRANSDERMA (10:26)
[2021-10-03 10:47] LABS: Basophils % 0.4 %; Eosinophils # 0.1 10^3/uL (0.0-0.8); Hematocrit 38.5 % (37.0-47.0); Lymphocytes # 2.3 10^3/uL (0.8-4.8); Mean Corpuscular HGB Conc 33.8 g/dL (30.0-36.0); Mean Corpuscular Hemoglobin 32.8 pg (28.0-34.0); Mean Corpuscular Volume 97.2 fl (81-99); Mean Platelet Volume 11.1 fL (7.4-10.4); Monocytes # 0.5 10^3/uL (0.2-0.9); Monocytes % 5.1 %; Neutrophils # 7.34 10^3/uL (1.8-7.7); Neutrophils % 71.1 %; Nucleated Red Blood Cells % 0 %; Platelet Count 270 10^3/cmm (130-400); Red Blood Count 3.96 10^6/uL (4.1-5.3); Red Cell Distribution Width 13.5 % (12.1-15.1); White Blood Count 10.3 10^3/uL (4.0-10.0)
--- NOTE | 2021-10-03 10:51 | P.ANESUD_ITS ---
Pre-Anesthetic Update Pre-Anesthetic Assessment: Date of Surgery/Procedure: 10/03/21 Preop Daniela gnosis: Abnormal uterine bleeding/menorrhagia, chronic pelvic pain Proposed Procedure: Operation Date: 10/03/21 10:50 Proposed Procedures p Total Vaginal Hysterectomy 08264/N93.9(Not Applicable) - Nick Tong MD Any changes to Pre-Anesthetic Assessment?: No Last Intake: Intake Last Liquid Date 10/02/21 Last Liquid Time 23:00 Last Solid Date 10/02/21 Last Solid Time 23:00 Labs Last 48hrs: Short CBC 10/03/21 Range/Units 10:15 WBC 10.3 H (4.0-10.0) 10^3/ uL Hgb 13.0 (11.5-15.3) g/dL Hct 38.5 (37.0-47.0) % MCV 97.2 (81-99) fl Plt Count 270 (130-400) 10^3/c mm Neut % (Auto) 71.1 % Neut # (Auto) 7.34 (1.8-7.7) 10^3/u L BMP 10/01/21 11:50 Sodium 137 Potassium 3.9 Chloride 103 Carbon Dioxide 20 L BUN 19 Creatinine 1.0 H Glucose 67 Calcium 8.9 Urine 10/03/21 Range/Units 09:45 Urine Color Yellow (Yellow) Urine Appearance Clear (CLEAR) Urine pH 7 (5-7) Ur Specific Gravit y 1.010 (1.005-1.030) Urine Protein Neg (Negative) Urine Glucose (UA) Norm (Normal) Urine Ketones 1+ H (Negative) Urine Nitrate Negative (Negative) Urine Bilirubin 1+ H (Negative) Ur Leukocyte Diane ase Negative (Negative) Vitals: Temperature 97.1 F L 10/03/21 09:46 Temperature Source Temporal Artery S can 10/03/21 09:46 Pulse Rate 70 10/03/21 09:46 Respiratory Rate 20 H 10/03/21 09:46 Blood Pressure 127/85 10/03/21 09:46 Blood Pressure Joanna n 99 10/03/21 09:46 Pulse Oximetry 97 10/03/21 09:46 Oxygen Delivery Me thod 10/03/21 09:51 Exam: Pre-Anes Outpt Exam: alert, oriented x 3, clear to auscultation bilaterally and regular rate & rhythm Cardiac Studies: No Data to Display
[2021-10-03 11:08] LABS: Alanine Aminotransferase 16 U/L (0-33); Albumin Level 4.3 g/dL (3.5-5.2); Alkaline Phosphatase 88 IU/L (35-105); Anion Gap 15.3 (5-19); Aspartate Amino Transferase 10 U/L (0-32); Blood Urea Nitrogen 22 mg/dL (6-20); Calcium 8.7 mg/dL (8.5-10.5); Carbon Dioxide 22 mmol/L (22-29); Chloride 103 mmol/L (98-107); Globulin 2.6 g/dL (1.3-4.6); Glomerular Filtration Rate 62.1 mL/min (90-130); Glucose 82 mg/dL (65-115); Osmolality Calculated 286 mOsm/kg (285-295); Potassium 3.3 mmol/L (3.5-5.1); Sodium 137 mmol/L (136-145); Total Bilirubin 0.5 mg/dL (0.15-1.2); Total Protein 6.9 g/dL (6.6-8.7)
--- NOTE | 2021-10-03 11:32 | W.PM.OPSUD ---
Surgery/Procedure H&P Update DATE OF PROCEDURE: October 03, 2021 DATE H&P PERFORMED: 10/01/21 H&P UPDATE INFORMATION: I have reviewed H&P completed within last 30 days, I have examined patient prior to procedure and No changes to prior documentation PREOP DIAGNOSIS: Abnormal uterine bleeding/menorrhagia, chronic pelvic pain PLANNED PROCEDURE: Operation Date: 10/03/21 10:50 Proposed Procedures p Total Vaginal Hysterectomy 45713/N93.9(Not Applicable) - Nick Tong MD
[2021-10-03] MEDS: ceFOXitin 2,000 MG in sodium chloride 0.9% (plus) 50 ML 100 MG IV (11:41)
--- NOTE | 2021-10-03 12:52 | P.OP_ITS ---
Operative Report Date of procedure: October 03, 2021 Pre-op Diagnosis: Abnormal uterine bleeding/menorrhagia, chronic pelvic pain Post-op diagnosis: same Post-op Findings: Normal size uterus Procedure Done: Total vaginal hysterectomy Specimens removed/disposition: Uterus Pathology: Uterus Surgeon: Nick Tong MD Anesthesia: General Estimated blood loss (mL): 10 IV fluids (mL): 800 Urine output (mL): 100 Complications: None Condition: stable Disposition: PACU Procedure: After informed consent and risks, benefits, indications and alternatives reviewed with the patient was taken to the operating room. The patient was placed in dorsal lithotomy position prepped, and draped in the usual sterile fashion. The pre-procedure timeout verifying the correct patient, procedure, site and side, could not requirements was performed and acknowledge by the OR team. A Guzman catheter was placed. A Bookwalter vaginal retractor was placed into the vagina in usual manner visualize the cervix. Cervix was grasped with a single tooth tenaculum and circumferentially infiltrated with 2% Xylocaine with epinephrine. Then cervix was circumferentially incised with bovie and the bladder was dissected off the pubovesical cervical fascia anteriorly with a sponge stick and Metzenbaum scissors. The anterior peritoneal reflection was identified and the anterior cul-de-sac was entered sharply with Metzenbaum scissors. The same procedure was performed posteriorly and a posterior colpotomy was made through the posterior cul-de-sac space without difficulty and the posterior blade of the Bookwalter vaginal retractor was advanced posteriorly into the cul-de-sac. At this time, the left and right uterosacral ligaments were isolated and ligated with 0 Vicryl. The Enseal device was placed over the uterosacral ligaments on either side and was then used in a serial fashion up through the cardinal ligaments bilaterally cross-clamped, cut, and sealed with the Enseal device. Finally, the uterine arteries were cross-clamped, cut, sealed and ligated with the Enseal device. Hemostasis was assured. The broad ligaments were then serially clamped, sealed and cut with the Enseal device on both sides. Excellent hemostasis was visualized. Both cornua were clamped, sealed and cut with the Enseal device. Then the pedicles were then suture ligated with excellent hemostasis. The uterus was excised and submitted for pathologic evaluation. No other abnormalities were noted in the pelvic cavity. The peritoneum was then closed in a pursestring fashion with 0 Vicryl suture. The vaginal cuff angles were closed with [id number] #0 Vicryl suture on both sides and transfixed with the ipsilateral cardinal and uterosacral ligaments. The remainder of the vaginal cuff was closed with #0 Vicryl in a run rosetta locked fashion. At this time, instruments were removed from the vagina at hemostasis assured. Guzman catheter was then placed yielding clear toyin urine. The patient was taken out of dorsal lithotomy position and awakened from the general anesthesia. The patient tolerated the procedure well and was taken to the PACU recovery room in a stable condition. Sponge, lap, needle and instruments counts were correct x3.
--- NOTE | 2021-10-03 14:16 | ANE.PACU2 ---
Inpatient post-anesthesia follow up: Airway intact: Yes Vital signs: Temperature 98.2 F Pulse Rate 58 Respiratory Rate 16 Blood Pressure 111/77 Pulse Oximetry 98 Oxygen Delivery Me thod Room Air Oxygen Flow Rate Fraction of Inspir ed Oxygen Hydration adequate: Yes Nausea and vomiting: No Pain level: 2 Mental status: Baseline
[2021-10-03] MEDS: dextrose 5%-lactated ringers 1,000 ML 125 ML IV ×2 (14:36→21:35)
[2021-10-03] MEDS: ketorolac 30 mg/mL INJ IVP ×2 (14:36→20:03)
[2021-10-03] MEDS: atenolol 50 mg Tablet 25 MG PO (17:00)
[2021-10-03] MEDS: pantoprazole DR 40 mg Tablet PO (17:00)
[2021-10-03] MEDS: topiramate 100 mg Tablet PO (17:00)
[2021-10-03] MEDS: gabapentin 400 mg Capsule 800 MG PO ×2 (17:00→21:35)
[2021-10-03] MEDS: oxyCODONE 5 mg IR Tab/Cap 10 MG PO (17:03)
[2021-10-03] MEDS: duloxetine 60 mg Capsule PO (18:34)
[2021-10-03] MEDS: montelukast sodium 10 mg Tablet PO (18:34)
[2021-10-03] MEDS: docusate sodium 100 mg Capsule PO (18:34)
[2021-10-03] MEDS: tizanidine 4 mg Tablet PO (18:47)
[2021-10-03] MEDS: oxybutynin chloride XL 5 MG TABLET PO (21:35)
[2021-10-04 00:28] VITALS: BP 100/64; PULSE 60; RESP 16; TEMP 36.8; O2SAT 96
[2021-10-04 05:00] VITALS: BP 100/64; PULSE 53; RESP 16; TEMP 36.4; O2SAT 100
[2021-10-04 05:20] LABS: Hematocrit 32.7 % (37.0-47.0); Hemoglobin 10.9 g/dL (11.5-15.3); Mean Corpuscular HGB Conc 33.3 g/dL (30.0-36.0); Mean Corpuscular Hemoglobin 33.5 pg (28.0-34.0); Mean Corpuscular Volume 100.6 fl (81-99); Mean Platelet Volume 11.2 fL (7.4-10.4); Platelet Count 234 10^3/cmm (130-400); Red Blood Count 3.25 10^6/uL (4.1-5.3); Red Cell Distribution Width 13.7 % (12.1-15.1); White Blood Count 14.9 10^3/uL (4.0-10.0)
[2021-10-04] MEDS: docusate sodium 100 mg Capsule PO (07:57)
[2021-10-04] MEDS: levothyroxine 50 mcg Tablet PO (07:58)
[2021-10-04] MEDS: duloxetine 60 mg Capsule PO (07:58)
[2021-10-04] MEDS: loratadine 10 mg Tablet PO (07:59)
[2021-10-04] MEDS: ergocalciferol (vitamin D2) 50,000 Unit Capsule 50000 UNIT PO (07:59)
[2021-10-04] MEDS: gabapentin 400 mg Capsule 800 MG PO (08:05)
[2021-10-04] MEDS: hydroCHLOROthiazide 25 mg Tablet PO (08:06)
[2021-10-04 08:10] VITALS: BP 105/59; PULSE 63; RESP 18; TEMP 36.8
[2021-10-04] MEDS: tizanidine 4 mg Tablet PO (08:15)
--- NOTE | 2021-10-04 09:13 | P.DS_ITS ---
Discharge Providers TUNNEL ELASTIC OPERATOR CHAINSTITCH Date of Admission: 10/03/21 13:41 Date of Discharge: 10/04/21 Attending Provider at Admission: Nick Tong MD Attending Provider at Discharge: Nick Tong MD Primary Care Provider: Padmini Laird MD Reason for Visit Reason for Visit: abnormal uterine bleeding N93.9/ Hospital Course Hospital Course Mrs. Correa 36-year-old female with a history of chronic pelvic pain, abnormal uterine bleeding, dysmenorrhea and dyspareunia unresponsive to medical management. Admitted for planned total vaginal hysterectomy which was performed without complications. Overnight observation was uneventful. She is status post total vaginal hysterectomy postoperative day 1, afebrile and hemodynamically stable. Tolerating diet well. Ambulating without difficulty. Pain well under control. The patient declined narcotic prescription for pain due to her being a patient at the pain clinic. Physical Exam Narrative: EXAM NARRATIVE: GA: Alert and oriented ?3. HEENT: WNL. Heart: Regular rate and rhythm. Lungs: Clear to auscultation bilaterally. Abdomen: Bowel sounds present, nontender TRANSPORTATION COORDINATOR: Spotting. Extremities: No edema, no cyanosis, no calves pain. Urinary Catheter Management^: Guzman: Cath Placed During This Visit: yes, but has since been removed by the nurse Reason for Continuing Indwelling Catheter: Other Urinary Catheter Date of Insertion: 10/03/21 Urinary Catheter Time of Insertion: 12:14 Date Urinary Catheter Removed: 10/04/21 Time Urinary Catheter Discontinued: 05:40 History History History 3 Term 3 Miscarriages/Ectopic 0 0 Living Children 3 Discharge Data Data Completed and Pending: Pending at discharge Category Date Time Status Pathology: Surgic al [PTH] Routine Pth 10/03/21 12:42 Received Labs from last 24 hours 10/04/21 10/03/21 10/03/21 05:04 10:15 10:15 WBC 14.9 H RBC 3.25 L Hgb 10.9 L Hct 32.7 L MCV 100.6 H MCH 33.5 MCHC 33.3 RDW 13.7 Plt Count 234 MPV 11.2 H Neut % (Auto) Lymph % (Auto) [place] % (Auto) Eos % (Auto) Baso % (Auto) Neut # (Auto) Lymph # (Auto) [place] # (Auto) Eos # (Auto) Baso # (Auto) Nucleated RBC % (a uto) Nucleated RBCs # Sodium 137 Potassium 3.3 L Chloride 103 Carbon Dioxide 22 Anion Gap 15.3 BUN 22 H Creatinine 1.0 H GFR Calculation 62.1 L Glucose 82 Calculated Osmolal ity 286 Calcium 8.7 Total Bilirubin 0.5 AST 10 ALT 16 Alkaline Phosphata se 88 Total Protein 6.9 Albumin 4.3 Globulin 2.6 Urine Color Urine Appearance Urine pH Ur Specific Gravit y Urine Protein Urine Glucose (UA) Urine Ketones Urine Blood Urine Nitrate Urine Bilirubin Urine Urobilinogen Ur Leukocyte Diane ase Urine HCG, Qual Blood Type A Positive Rho(D) Type Positive Antibody Screen Negative 10/03/21 10/03/21 10/03/21 10:15 09:45 09:45 WBC 10.3 H RBC 3.96 L Hgb 13.0 Hct 38.5 MCV 97.2 MCH 32.8 MCHC 33.8 RDW 13.5 Plt Count 270 MPV 11.1 H Neut % (Auto) 71.1 Lymph % (Auto) 22.0 [place] % (Auto) 5.1 Eos % (Auto) 1.0 Baso % (Auto) 0.4 Neut # (Auto) 7.34 Lymph # (Auto) 2.3 [place] # (Auto) 0.5 Eos # (Auto) 0.1 Baso # (Auto) 0.0 Nucleated RBC % (a uto) 0 Nucleated RBCs # 0.0 Sodium Potassium Chloride Carbon Dioxide Anion Gap BUN Creatinine GFR Calculation Glucose Calculated Osmolal ity Calcium Total Bilirubin AST ALT Alkaline Phosphata se Total Protein Albumin Globulin Urine Color Yellow Urine Appearance Clear Urine pH 7 Ur Specific Gravit y 1.010 Urine Protein Neg Urine Glucose (UA) Norm Urine Ketones 1+ H Urine Blood Neg Urine Nitrate Negative Urine Bilirubin 1+ H Urine Urobilinogen 4+ H Ur Leukocyte Diane ase Negative Urine HCG, Qual Negative Blood Type Rho(D) Type Antibody Screen Vitals: Last Vital Signs Temp 97.5 F L 10/04/21 05:00 Pulse 53 L 10/04/21 05:00 Resp 16 10/04/21 05:00 BP 100/64 10/04/21 05:00 Pulse Ox 100 10/04/21 05:00 Discharge Plan Discharge Patient Disposition: Home Condition: Stable Prescriptions: New ibuprofen 800 mg tablet 800 mg PO TID PRN (Reason: pain) Qty: 60 RF: 0 acetaminophen 325 mg capsule 325 mg PO Q4H PRN (Reason: fever or pain) Qty: 60 RF: 0 Continued (DME) Right AFO See Rx Instructions .Route .MEDSUPPLY Qty: 1 RF: 0 atenolol 25 mg tablet 25 mg PO DAILY Qty: 30 RF: 4 oxycodone 10 mg tablet 10 mg PO BID RF: 0 (DME) [place] AFO See Rx Instructions .Route .MEDSUPPLY Qty: 1 RF: 0 gabapentin 800 mg tablet 800 mg PO QID 30 Days Qty: 120 RF: 1 duloxetine 60 mg capsule,delayed release(DR/EC) 60 mg PO BID@0700,1900 30 Days Qty: 60 RF: 1 Singulair 10 mg tablet 10 mg PO DAILY@1900 Qty: 30 RF: 2 hydrochlorothiazide 25 mg tablet See Rx Instructions .ROUTE .COMPLEX Qty: 30 RF: 0 levothyroxine [Euthyrox] 50 mcg tablet See Rx Instructions .ROUTE .COMPLEX Qty: 30 RF: 0 EQ Loratadine 10 MG Oral Tablet See Rx Instructions .ROUTE .COMPLEX Qty: 30 RF: 0 cholecalciferol (vitamin D3) 1,250 mcg (50,000 unit) capsule See Rx Instructions .ROUTE .COMPLEX Qty: 8 RF: 2 tizanidine 4 mg tablet 100 mg PO DAILY RF: 0 Imitrex 100 mg tablet 100 mg PO PRN PRN (Reason: Headache) RF: 0 esomeprazole magnesium 40 mg capsule,delayed release(DR/EC) 40 mg PO DAILY RF: 0 oxybutynin chloride 5 mg tablet extended release 24hr 5 mg PO DAILY RF: 0 topiramate 100 mg tablet 100 mg PO DAILY RF: 0 Linzess 145 mcg capsule 145 mcg PO DAILY RF: 0 Discharge Orders: Discharge Order (Routine); Ordered 10/04/21 Ordered By: Nick Tong Referrals: Nick Tong MD [Physician] - 10/16/21 9:00 am Discharge Diet: Usual diet Discharge Activity: Increase activity as tolerated Patient Instructions: Vaginal Hysterectomy (DC), Pain Management After Surgery (DC), OB Discharge Report, OB Food/Drug Interaction Guide, Opioid Safety Activity Restrictions/Additional Instructions: 1. Please call [facility] on next working day to make your post-operative appointment in 2 weeks. 2. Please stay home until you come back to the clinic on first post-operative check up. 3. Please follow instructions on your medications CAREFULLY. 4. If you have abdominal incision, do not cover it unless dressing is necessary because of drainage. OK to shower, but avoid bath. Leave steri-strips until they fall off. If they are still on one week after surgery, you may remove them. 5. If you had vaginal surgery or vaginal repair, Dr. Tong may instruct you to take SITZ bath. 6. Yellow, blood tinged odorous vaginal discharge is usually normal after hysterectomy or vaginal surgeries. 7. No sexual intercourse, tampons, or douches until you are completely released from the post-operative care. 8. Avoid constipation by eating right and maybe using some Metamucil or Milk of Magnesia. 9. All prescription refills are given during the working hours. Please do no wait till it runs out. Call the clinic at [phone] before your medication runs out. The clinic will get in touch with your doctor to prescribe medications if necessary. 10. Please remain within 40 mile radius from our hospital because emergencies do happen now and then during the post-operative period. 11. If you have stairs at home, take one step at a time slowly and minimize the number of trips. It helps to stay in one floor for the next few days. No lifting except what you can lift by one hand until you are released from the post-operative care. 12. Driving is discouraged until you are well healed. It may be 3-4 weeks before you feel strong enough to drive. You should be able to turn and look through the rear window without pain and you should be able to push the brake pedal very hard without pain before you drive. No fast rules, but SAFETY should be your primary concern. DO NOT drive if you are on sedating medications such as narcotics. 13. Call the clinic (during working hours) to make urgent appointment or go to the Emergency room, if any of the following occurs: i. Vaginal bleeding becomes heavy, more than a period. ii. Incision becomes red and sore, or drains pus. iii. Your temperature is over 100.4 or you have chill. iv. IV site becomes red and swollen (a little ``knot?? is usually OK) v. Persistent nausea and vomiting vi. Persistent constipation or diarrhea vii. Rash or allergic reaction to medications. Discharge Attestations TUNNEL ELASTIC OPERATOR CHAINSTITCH Time Spent in Discharge Care*: greater than 30 min Coding Level of Care Code Acute Nuclear Control Operator for Christine Cason
[2021-10-04 10:15] VITALS: BP 105/59; PULSE 63; RESP 18; TEMP 36.8
== END 2021-10-04 10:15 | disposition home or self-care (01) ==
LOC: OBGYN 13:42
PROVIDERS: Anesthesiology; Admitting Provider Obstetrics & Gynecology; PCP Family Medicine; Visit Provider Obstetrics & Gynecology
PROC: (CPT 58260; principal; 2021-10-03 10:50)
DX: N93.9 Abnormal uterine and vaginal bleeding, unspecified (principal); N92.0 Excessive and frequent menstruation with regular cycle; R10.2 Pelvic and perineal pain; G89.29 Other chronic pain; I10 Essential (primary) hypertension; K21.9 Gastro-esophageal reflux disease without esophagitis; E66.01 Morbid (severe) obesity due to excess calories; Z68.41 Body mass index [BMI] 40.0-44.9, adult; E03.9 Hypothyroidism, unspecified; Z80.3 Family history of malignant neoplasm of breast; Z80.41 Family history of malignant neoplasm of ovary; Z82.49 Family history of ischemic heart disease and other diseases of the circulatory system; Z83.3 Family history of diabetes mellitus
CPT/HCPCS: 58260; 36415; 80048; 80053; 81003; 81025; 84703; 85025; 85027; 86850; 86900; 88307; 96365; G0378; J0694; J1100; J1200; J1885; J2250; J2270; J2405; J2704; J2710; J3010; J3490; J7030; J7040

== ENCOUNTER → 2021-11-13 10:23 | Outpatient (BNVA) | payer MEDICARE, MEDICAID, SELFPAY | PROVIDERS: PCP Family Medicine; Visit Provider Obstetrics & Gynecology | DX: F32.1 Major depressive disorder, single episode, moderate (principal); R23.2 Flushing | CPT/HCPCS: 83001; 84443 ==

== ENCOUNTER → 2021-12-03 09:53 | Outpatient (BNVA) | payer MEDICARE, MEDICAID, SELFPAY | PROVIDERS: PCP Family Medicine; Visit Provider Family Medicine | DX: K59.03 Drug induced constipation (principal); T40.2X5A Adverse effect of other opioids, initial encounter; F32.1 Major depressive disorder, single episode, moderate; Q89.1 Congenital malformations of adrenal gland; N83.209 Unspecified ovarian cyst, unspecified side | CPT/HCPCS: 82533; 84443; 85025 ==

== ENCOUNTER → 2022-01-15 11:32 | Outpatient (BNVA) | payer MEDICARE, MEDICAID, SELFPAY | PROVIDERS: PCP Family Medicine; Visit Provider Obstetrics & Gynecology | DX: R23.2 Flushing (principal); E03.9 Hypothyroidism, unspecified; F32.1 Major depressive disorder, single episode, moderate | CPT/HCPCS: 83001; 84402; 84443 ==

== ENCOUNTER → 2022-01-21 12:03 | Outpatient (BNVA) | payer MEDICARE, MEDICAID, SELFPAY | PROVIDERS: PCP Family Medicine; Visit Provider Obstetrics & Gynecology | DX: N83.209 Unspecified ovarian cyst, unspecified side (principal) | CPT/HCPCS: 76830 ==

== ENCOUNTER 2022-02-25 07:11 | Emergency (ER) | payer MEDICARE, MEDICAID, SELFPAY ==
[2022-02-25 07:17] VITALS: BP 107/77; PULSE 88; RESP 18; TEMP 36.1; O2SAT 97; BMI 43.0
--- NOTE | 2022-02-25 07:30 | XR_ITS ---
WS: [id number] CERVICAL SPINE 3 VIEWS HISTORY: fall COMPARISON: None available. Normal cervical alignment with no fracture or destructive process. Disc spaces and vertebral body heights are well-maintained. Soft tissues are normal. XR/XR cervical spine 3V* [id number] IMPRESSION: Normal cervical spine.
--- NOTE | 2022-02-25 07:30 | CT_ITS ---
WS: [id number] CT HEAD NONCONTRAST HISTORY: fall, syncope, REDDY, brain fog TECHNIQUE: Contiguous axial imaging performed through the brain in 2.5 mm imaging. Bone and soft tiss ue windows. Sagittal and coronal reformats reviewed. All CT scans at [facility] use at least one of these dose optimization techniques: automated exposure control; mA and/or kV adjustment per pa tient size (includes targeted exams where dose is matched to clinical indication); or iterative recon struction. DLP: 779.23 mGy.cm COMPARISON: None available. No acute intracranial hemorrhage, midline shift or mass effect. No atrophy or prior infarcts or herniation. Ventricles: Normal size with no hydrocephalus. Paranasal sinuses: As visualized are clear. Mastoid air cells: Well pneumatized. Calvarium and scalp: Skull is intact with no soft tissue edema or swelling. CT/CT head wo con* [id number] IMPRESSION: Negative head CT.
--- NOTE | 2022-02-25 07:30 | XR_ITS ---
WS: [id number] LUMBAR SPINE: 3 VIEWS TECHNIQUE: AP, lateral and L5-S1 spot. HISTORY: fall COMPARISON: None available. Straightening of the normal lumbar lordosis. Asymmetric disc space narrowing at L3-4. Retrolisthesis of L3 by 4 mm. No fractures are identified. The transverse processes appear intact. Mild facet joint arthritis at L4-5 and L5-S1. SI joints are symmetric bilaterally. No soft tissue abnormalities. Status post cholecystectomy. Numerous surgical sutures are noted within the RIGHT upper abdomen. XR/XR lumbar spine 2-3V* [id number] IMPRESSION: 1. No acute lumbar spine fracture. 2. Moderate degenerative asymmetric disc space narrowing at L3-4. 3. Prior cholecystectomy.
--- NOTE | 2022-02-25 07:31 | W.ED.BACK ---
HPI - Back Pain/Injury General: Chief Complaint: Back Pain/Injury Stated Complaint: Passed out, hit head, head pain Time Seen by Provider: 02/25/22 07:13 PFSH ED PFSH: Medical History Back pain with history of spinal surgery Chordoma of clivus [facility]--- Tom Bruner MD. Depression Encounter for long-term opiate analgesic use Gastro-esophageal reflux disease without esophagitis Hypertension Hypothyroidism No pertinent past medical history neghx: dm,dvt/pe PCP: Jolly Laird Obesity Opioid contract exists Right foot drop Spinal stenosis Surgical History H/O gastric bypass (~2011) History of augmentation of right breast (~2001) saline implant History of back surgery (~2010) History of cholecystectomy (~2003) History of tubal ligation (~2014) Normal colonoscopy (~2011) Family History Family/Other Breast cancer Maternal Aunt--dx age 30's Diabetes Maternal and Paternal side in general Ovarian cancer Maternal Aunt--dx age 40's Thyroid disease Maternal side in general Father Heart disease Stroke Grandfather Heart disease Paternal Mother Hypercholesteremia Hypertension Thyroid disease Denies family history of Colon cancer Uterine cancer Social History Smoking and tobacco status: current some day smoker cigarettes Packs smoked per day: 0.5 Household members: spouse Marital status: Current gender identity: Female Female Reproductive History: Date of last menstrual period: 04/29/21 Course Vital Signs: Vital signs: Vital Signs Temperature 96.9 F L 02/25/22 07:17 Pulse Rate 88 02/25/22 07:17 Respiratory Rate 18 02/25/22 07:17 Blood Pressure 107/77 02/25/22 07:17 Pulse Oximetry 97 02/25/22 07:17 Discharge Plan Discharge Condition: Stable Prescriptions: No Action (DME) Right AFO See Rx Instructions .Route .MEDSUPPLY Qty: 1 0RF Rx Instructions: As directed cetirizine [Zyrtec] 10 mg tablet 10 mg PO DAILY PRN (Reason: allergy symptoms) Qty: 30 3RF topiramate [Topamax] 25 mg tablet 25 mg PO DAILY Qty: 30 3RF (DME) demetrius MEHTA See Rx Instructions .Route .MEDSUPPLY Qty: 1 0RF Rx Instructions: To the right lower extremity. Movantik 25 mg tablet 25 mg PO QAM Qty: 30 3RF Rx Instructions: must be taken on empty stomach; no food 1 hr after or 2-3 hrs before dose duloxetine 60 mg capsule,delayed release(DR/EC) 60 mg PO BID@0700,1900 30 Days Qty: 60 3RF cholecalciferol (vitamin D3) 1,250 mcg (50,000 unit) capsule See Rx Instructions .ROUTE .COMPLEX Qty: 8 2RF Rx Instructions: 50,000 unit orally two times weekly. on Friday and . topiramate 100 mg tablet 100 mg PO DAILY Qty: 30 3RF Rx Instructions: Take 1 tablet by mouth once daily atenolol 25 mg tablet 25 mg PO DAILY Qty: 30 4RF oxycodone 10 mg tablet 10 mg PO BID 30 Days Qty: 60 0RF Rx Instructions: fill on or after 10/23/21 tizanidine 4 mg capsule 4 mg PO TID PRN (Reason: muscle spasticity) Qty: 90 4RF hydrochlorothiazide 25 mg tablet See Rx Instructions .ROUTE .COMPLEX Qty: 30 2RF Dose Instruction: Take 1 tablet by mouth once daily Rx Instructions: Take 1 tablet by mouth once daily oxybutynin chloride 5 mg tablet extended release 24hr 5 mg PO DAILY Qty: 30 3RF Rx Instructions: TAKE 1 TABLET BY MOUTH ONCE DAILY FOR URGE INCONTINENCE sumatriptan succinate 100 mg tablet See Rx Instructions .ROUTE .COMPLEX Qty: 30 0RF Dose Instruction: TAKE ONE TABLET BY MOUTH AT ONSET of migraines, if symptoms persist, a second DOSE MAY be taken in TWO hours. DO not exceed TWO doses in a 24 hour peroid,unless otherwise instructed by your physician Rx Instructions: TAKE ONE TABLET BY MOUTH AT ONSET of migraines, if symptoms persist, a second DOSE MAY be taken in TWO hours. DO not exceed TWO doses in a 24 hour peroid,unless otherwise instructed by your physician pantoprazole [Protonix] 40 mg tablet,delayed release (DR/EC) 40 mg PO BID Qty: 60 2RF cyanocobalamin (vitamin B-12) 1,000 mcg/mL solution 1,000 mcg SUBCUT .MONTHLY Qty: 1 12RF gabapentin 800 mg tablet See Rx Instructions .ROUTE .COMPLEX Qty: 120 1RF Dose Instruction: TAKE ONE TABLET BY MOUTH FOUR TIMES DAILY Rx Instructions: TAKE ONE TABLET BY MOUTH FOUR TIMES DAILY levothyroxine 50 mcg tablet See Rx Instructions .ROUTE .COMPLEX Qty: 30 1RF Dose Instruction: Take 1 tablet by mouth once daily Rx Instructions: Take 1 tablet by mouth once daily montelukast 10 mg tablet See Rx Instructions .ROUTE .COMPLEX Qty: 30 1RF Dose Instruction: TAKE ONE TABLET BY MOUTH ONCE DAILY AT 7PM Rx Instructions: TAKE ONE TABLET BY MOUTH ONCE DAILY AT 7PM estradiol 0.5 mg tablet 0.5 mg PO DAILY 30 Days Qty: 30 11RF ibuprofen 800 mg tablet 800 mg PO TID PRN (Reason: pain) Qty: 60 0RF acetaminophen 325 mg capsule 325 mg PO Q4H PRN (Reason: fever or pain) Qty: 60 0RF Referrals: Padmini Laird MD [Primary Care Provider] - Coding Level of Care Code ED Gas Compressor Turbine Operator for lauro Cason
[2022-02-25 08:02] VITALS: BP 116/79; O2SAT 96
--- NOTE | 2022-02-25 08:02 | W.ED.FALL ---
HPI - Fall General: Chief Complaint: Back Pain/Injury Stated Complaint: Passed out, hit head, head pain Time Seen by Provider: 02/25/22 07:13 Source: patient Mode of arrival: ambulatory Limitations: no limitations History of Present Illness: Patient is a 37-year-old female presents to ED today for evaluation of head injury and back pain. Patient tells me 2 weeks ago she fell while at work. Patient states she is hypoglycemic and states she requires breaks to eat and keep her blood sugars up. Patient does not have a glucometer and thus does not check her blood sugars stating that her insurance will not cover them. She states she has passed out before secondary to this. She states when she fell she fell back against a safe and injured her back. She states she struck her head on the concrete. Patient states since the fall she has been having worsening of her chronic lower back pain as well as some neck pain. She states she has had headaches and brain fog . Patient states she is here to make sure everything is okay . She has a history of spinal surgery for a chondroma. complaint: fall Onset (ago): week(s) (2 weeks ago) Fall from: standing Fall witnessed: yes, by bystander Loss of consciousness: Yes Length of LOC: second(s) Prolonged down time: no Symptoms prior to fall: lightheadedness and dizziness Location of injury: head, neck and back Associated symptoms-after fall: Reports no associated symptoms, headache(s) and neck pain; Denies abdominal pain, chest pain, confusion, difficulty walking or lightheadedness Review of Systems Const: Denies: fever(s), chills, body aches, fatigue or malaise Eyes: Denies: change in vision, blurry vision, photophobia, floaters or seeing flashes Card: Denies: chest pain, palpitations, irregular heart rhythm, edema, swelling of feet/ankles, lightheadedness or dyspnea on exertion Resp: Denies: dyspnea, productive cough or pain on inspiration GI: Denies: abdominal pain, nausea, vomiting, heartburn or diarrhea : Denies: flank pain or dysuria Musc: Reports: neck pain and back pain; Denies: extremity pain, extremity swelling, joint pain or joint swelling Skin/Breast: Denies: rash Neuro: Reports: headache(s); Denies: numbness in extremities, weakness in extremities, sensory changes, lack of coordination, difficulty walking, dizziness, confusion, behavioral changes, Slurred speech present, difficulty communicating thoughts or seizure-like activity PFSH ED PFSH: Medical History Back pain with history of spinal surgery Chordoma of clivus [facility]--- Tom Bruner MD. Depression Encounter for long-term opiate analgesic use Gastro-esophageal reflux disease without esophagitis Hypertension Hypothyroidism No pertinent past medical history neghx: dm,dvt/pe PCP: Jolly Laird Obesity Opioid contract exists Right foot drop Spinal stenosis Surgical History H/O gastric bypass (~2011) History of augmentation of right breast (~2001) saline implant History of back surgery (~2010) History of cholecystectomy (~2003) History of tubal ligation (~2014) Normal colonoscopy (~2011) Family History Family/Other Breast cancer Maternal Aunt--dx age 30's Diabetes Maternal and Paternal side in general Ovarian cancer Maternal Aunt--dx age 40's Thyroid disease Maternal side in general Father Heart disease Stroke Grandfather Heart disease Paternal Mother Hypercholesteremia Hypertension Thyroid disease Denies family history of Colon cancer Uterine cancer Social History Smoking and tobacco status: current some day smoker cigarettes Packs smoked per day: 0.5 Household members: spouse Marital status: Current gender identity: Female Female Reproductive History: Date of last menstrual period: 04/29/21 Physical Exam Const: COMMON NORMALS: no acute distress, patient oriented x3, no limitations and alert GENERAL APPEARANCE: cooperative NUTRITIONAL APPEARANCE: obese morbidly obese ORIENTATION/CONSCIOUSNESS: Yes awake, Yes oriented to person, Yes oriented to place and Yes oriented to time HENMT: COMMON NORMALS: normocephalic and atraumatic HEAD & SCALP: normal to inspection, normocephalic and atraumatic FACE & SINUS: normal facial exam Neck/C-Spine: COMMON NORMALS: full ROM GENERAL: Yes normal visual inspection CERVICAL SPINE: Yes cervical ROM normal, Yes pain with cervical ROM, Yes Cervical spine tenderness (mid cervical spine-minimal ), No step off deformity and Yes Paracervical muscle tenderness right Resp: COMMON NORMALS: normal respiratory effort and clear to auscultation bilaterally AUSCULTATION: clear to auscultation bilaterally Cardio: COMMON NORMALS: regular rate and regular rhythm RATE: regular rate RHYTHM: regular rhythm Back/Pelvis: THORACIC SPINE/UPPER BACK: Yes normal to inspection, Yes thoracic ROM normal, No thoracic spinal tenderness, No paraspinal muscle tenderness and No paraspinal muscle spasm LUMBAR SPINE/LOWER BACK: Yes normal to inspection, Yes pain with ROM, No lumbar spinal tenderness, Yes paraspinal muscle tenderness Lumbar paraspinal muscle tenderness: right and No paraspinal muscle spasm SACROILIAC JOINTS: Yes SI joints normal SACRUM: no tenderness COCCYX: no tenderness Extremity: COMMON NORMALS: normal to inspection and full ROM GENERAL: Yes normal exam except as noted Neuro: ELEN COMA SCALE: document GCS findings Jermyn coma scale eye opening: Spontaneous Elen coma scale verbal response: Orientated Jermyn coma scale motor response: Obey commands Elen coma scale total score: 15 COMMON NORMALS: patient oriented x3, CN's II-XII intact bilaterally, moves all extremities, no focal motor deficits, no sensory deficits noted and gait normal SENSORIUM/ORIENTATION: Yes alert, Yes oriented to person, Yes oriented to place and Yes oriented to time MOTOR EXAM: 5/5 motor strength present throughout Skin: COMMON NORMALS: no rashes or lesions noted GENERAL SKIN EXAM: no rashes or lesions noted TRAUMA: no lacerations or abrasions Course Vital Signs: Vital signs: Vital Signs Temperature 96.9 F L 02/25/22 07:17 Pulse Rate 88 02/25/22 07:17 Respiratory Rate 18 02/25/22 07:17 Blood Pressure 116/79 02/25/22 08:02 Pulse Oximetry 96 02/25/22 08:02 MDM - Fall Medical Decision Making CT head negative. XR cervical/lumbar negative. Patient will be allowed DC with instructions to follow up with PCP. Lab Data Radiology Impressions Cervical Spine X-Ray 02/25/22 07:30 IMPRESSION: Normal cervical spine. Head CT 02/25/22 07:30 IMPRESSION: Negative head CT. Lumbar Spine X-Ray 02/25/22 07:30 IMPRESSION: 1. No acute lumbar spine fracture. 2. Moderate degenerative asymmetric disc space narrowing at L3-4. 3. Prior cholecystectomy. Discharge Plan Discharge Patient Disposition: Home Clinical Impression: Minor closed head injury, Acute exacerbation of chronic low back pain Fall Qualifiers: Encounter type: initial encounter Qualified Code(s): W19.XXXA - Unspecified fall, initial encounter Cervical sprain Qualifiers: Encounter type: initial encounter Qualified Code(s): S13.9XXA - Sprain of joints and ligaments of unspecified parts of neck, initial encounter Condition: Stable Prescriptions: No Action (DME) Right AFO See Rx Instructions .Route .MEDSUPPLY Qty: 1 0RF Rx Instructions: As directed cetirizine [Zyrtec] 10 mg tablet 10 mg PO DAILY PRN (Reason: allergy symptoms) Qty: 30 3RF topiramate [Topamax] 25 mg tablet 25 mg PO DAILY Qty: 30 3RF (DME) o[place] AFO See Rx Instructions .Route .MEDSUPPLY Qty: 1 0RF Rx Instructions: To the right lower extremity. Movantik 25 mg tablet 25 mg PO QAM Qty: 30 3RF Rx Instructions: must be taken on empty stomach; no food 1 hr after or 2-3 hrs before dose duloxetine 60 mg capsule,delayed release(DR/EC) 60 mg PO BID@0700,1900 30 Days Qty: 60 3RF cholecalciferol (vitamin D3) 1,250 mcg (50,000 unit) capsule See Rx Instructions .ROUTE .COMPLEX Qty: 8 2RF Rx Instructions: 50,000 unit orally two times weekly. on Friday and . topiramate 100 mg tablet 100 mg PO DAILY Qty: 30 3RF Rx Instructions: Take 1 tablet by mouth once daily atenolol 25 mg tablet 25 mg PO DAILY Qty: 30 4RF oxycodone 10 mg tablet 10 mg PO BID 30 Days Qty: 60 0RF Rx Instructions: fill on or after 10/23/21 tizanidine 4 mg capsule 4 mg PO TID PRN (Reason: muscle spasticity) Qty: 90 4RF hydrochlorothiazide 25 mg tablet See Rx Instructions .ROUTE .COMPLEX Qty: 30 2RF Dose Instruction: Take 1 tablet by mouth once daily Rx Instructions: Take 1 tablet by mouth once daily oxybutynin chloride 5 mg tablet extended release 24hr 5 mg PO DAILY Qty: 30 3RF Rx Instructions: TAKE 1 TABLET BY MOUTH ONCE DAILY FOR URGE INCONTINENCE sumatriptan succinate 100 mg tablet See Rx Instructions .ROUTE .COMPLEX Qty: 30 0RF Dose Instruction: TAKE ONE TABLET BY MOUTH AT ONSET of migraines, if symptoms persist, a second DOSE MAY be taken in TWO hours. DO not exceed TWO doses in a 24 hour peroid,unless otherwise instructed by your physician Rx Instructions: TAKE ONE TABLET BY MOUTH AT ONSET of migraines, if symptoms persist, a second DOSE MAY be taken in TWO hours. DO not exceed TWO doses in a 24 hour peroid,unless otherwise instructed by your physician pantoprazole [Protonix] 40 mg tablet,delayed release (DR/EC) 40 mg PO BID Qty: 60 2RF cyanocobalamin (vitamin B-12) 1,000 mcg/mL solution 1,000 mcg SUBCUT .MONTHLY Qty: 1 12RF gabapentin 800 mg tablet See Rx Instructions .ROUTE .COMPLEX Qty: 120 1RF Dose Instruction: TAKE ONE TABLET BY MOUTH FOUR TIMES DAILY Rx Instructions: TAKE ONE TABLET BY MOUTH FOUR TIMES DAILY levothyroxine 50 mcg tablet See Rx Instructions .ROUTE .COMPLEX Qty: 30 1RF Dose Instruction: Take 1 tablet by mouth once daily Rx Instructions: Take 1 tablet by mouth once daily montelukast 10 mg tablet See Rx Instructions .ROUTE .COMPLEX Qty: 30 1RF Dose Instruction: TAKE ONE TABLET BY MOUTH ONCE DAILY AT 7PM Rx Instructions: TAKE ONE TABLET BY MOUTH ONCE DAILY AT 7PM estradiol 0.5 mg tablet 0.5 mg PO DAILY 30 Days Qty: 30 11RF ibuprofen 800 mg tablet 800 mg PO TID PRN (Reason: pain) Qty: 60 0RF acetaminophen 325 mg capsule 325 mg PO Q4H PRN (Reason: fever or pain) Qty: 60 0RF Discharge Orders: Discharge ED (Routine); Ordered 02/25/22 Ordered By: Komal Ta Referrals: Padmini Laird MD [Primary Care Provider] - Coding Level of Care Code ED Health And Wellness Advisor for Chg Fwd Exam Comprehensive
[2022-02-25 08:25] VITALS: BP 119/67; PULSE 68; O2SAT 95
== END 2022-02-25 08:26 | disposition home or self-care (01) ==
PROVIDERS: Emergency Provider Physician Assistant; PCP Family Medicine
DX: S13.9XXA Sprain of joints and ligaments of unspecified parts of neck, initial encounter (principal); S09.90XA Unspecified injury of head, initial encounter; M54.50 Low back pain, unspecified; G89.29 Other chronic pain; W01.198A Fall on same level from slipping, tripping and stumbling with subsequent striking against other object, initial encounter
CPT/HCPCS: 70450; 72040; 72100; 99283

== ENCOUNTER → 2022-05-03 10:53 | Outpatient (BNVA) | payer MEDICARE, MEDICAID, SELFPAY | PROVIDERS: PCP Family Medicine; Visit Provider Family Medicine | DX: M54.9 Dorsalgia, unspecified (principal); M48.00 Spinal stenosis, site unspecified; Z79.891 Long term (current) use of opiate analgesic; Z98.890 Other specified postprocedural states | CPT/HCPCS: 80307 ==

== ENCOUNTER 2022-05-13 17:14 | Emergency (ER) | payer MEDICARE, MEDICAID, SELFPAY ==
[2022-05-13 17:43] VITALS: BP 121/82; PULSE 61; RESP 16; TEMP 36.5; O2SAT 98; BMI 39.4
--- NOTE | 2022-05-13 17:47 | XRR_ITS ---
PROCEDURE INFORMATION: Exam: XR Right Ankle Exam date and time: 05/13/2022 6:07 PM Age: 37 years old Clinical indication: Injury or trauma; Fall; Blunt trauma; Ankle; Right; Additional info: Right ankle trauma TECHNIQUE: Imaging protocol: Radiologic exam of the Right ankle. Views: 3 or more views. COMPARISON: CR (LOW EXM, ) 05/13/2022 6:00 PM, right foot radiograph report 02/14/2021 FINDINGS: Bones/joints: Osseous structures are intact. Negative for fracture. Joint spaces are preserved. Redemonstrated well corticated osseous fragment along the dorsal aspect of the navicular bone again suggestive of old trauma. Soft tissues: Normal. XR/XR ankle RT min 3V* [id number] IMPRESSION: No acute findings.
--- NOTE | 2022-05-13 17:48 | W.ED.EXTPRO ---
HPI - Extremity Problem General: Chief complaint: Extremity Injury, Lower Stated complaint: ankle needs xray Time Seen by Provider: 05/13/22 17:48 History of Present Illness: 37-year-old female comes in today with complaints of injury to the right ankle and foot. Patient states about 6 weeks ago she first injured her ankle and then 3 days ago reinjured it. Patient reports feeling a pop both times. Patient has a history of cancer notably cervical cancer and chordoma of clivus. Patient already is on chronic pain medications. Patient is concerned for fracture. Associated symptoms: Deny fever(s) Review of Systems Const: Denies: fever(s) Resp: Denies: dyspnea GI: Denies: abdominal pain Musc: Reports: extremity pain PFSH ED PFSH: Medical History Back pain with history of spinal surgery Chordoma of clivus [facility]--- Tom Bruner MD. Depression Encounter for long-term opiate analgesic use Gastro-esophageal reflux disease without esophagitis Hypertension Hypothyroidism No pertinent past medical history neghx: dm,dvt/pe PCP: Jolly Laird Obesity Opioid contract exists Right foot drop Spinal stenosis Surgical History H/O gastric bypass (~2011) H/O: hysterectomy 10/03/2021- Total vaginal hysterectomy performed by Dr. Tong at [facility] History of augmentation of right breast (~2001) saline implant History of back surgery (~2010) History of cholecystectomy (~2003) History of tubal ligation (~2014) Normal colonoscopy (~2011) Family History Family/Other Breast cancer Maternal Aunt--dx age 30's Diabetes Maternal and Paternal side in general Ovarian cancer Maternal Aunt--dx age 40's Thyroid disease Maternal side in general Father Heart disease Stroke Grandfather Heart disease Paternal Mother Hypercholesteremia Hypertension Thyroid disease Denies family history of Colon cancer Uterine cancer Social History Smoking and tobacco status: current every day smoker cigarettes Packs smoked per day: 0.5 Household members: spouse Marital status: Current gender identity: Female Female Reproductive History: Date of last menstrual period: 04/29/21 Physical Exam Const: COMMON NORMALS: alert HENMT: COMMON NORMALS: normocephalic HEAD & SCALP: normocephalic Neck/C-Spine: COMMON NORMALS: full ROM Resp: COMMON NORMALS: normal respiratory effort Cardio: COMMON NORMALS: regular rate RATE: regular rate Extremity: RIGHT LOWER EXTREMITY: Yes foot & digits (Lateral swelling) and Yes foot & digits (Dorsal tenderness, no obvious deformity) Neuro: SENSORIUM/ORIENTATION: Yes alert Skin: COMMON NORMALS: turgor normal GENERAL SKIN EXAM: turgor normal Course Vital Signs: Vital signs: Vital Signs Temperature 97.7 F 05/13/22 17:43 Pulse Rate 61 05/13/22 17:43 Respiratory Rate 16 05/13/22 17:43 Blood Pressure 121/82 05/13/22 17:43 Pulse Oximetry 98 05/13/22 17:43 MDM - Extremity (Nontraumatic) Medical Decision Making 37-year-old female with a history of cancer comes in with right foot and ankle pain. On exam patient has some swelling and dorsal tenderness to the foot. No obvious ecchymosis or redness. Differential diagnosis includes fracture, sprain, malingering. X-ray of the ankle and foot noted no obvious fractures. Patient might have a severe sprain causing some joint instability. Recommend patient follow-up with podiatry for further evaluation and treatment otherwise primary care as needed. Lab Data Radiology Impressions Ankle X-Ray 05/13/22 17:47 IMPRESSION: No acute findings. Discharge Plan Discharge Patient Disposition: Home Clinical Impression: Foot joint pain Qualifiers: Laterality: left Qualified Code(s): M25.572 - Pain in left ankle and joints of left foot Condition: Stable Prescriptions: No Action (DME) Right AFO See Rx Instructions .Route .MEDSUPPLY Qty: 1 0RF Rx Instructions: As directed (DME) [place] AFO See Rx Instructions .Route .MEDSUPPLY Qty: 1 0RF Rx Instructions: To the right lower extremity. Movantik 25 mg tablet 25 mg PO QAM Qty: 30 3RF Rx Instructions: must be taken on empty stomach; no food 1 hr after or 2-3 hrs before dose oxycodone 10 mg tablet 10 mg PO BID 30 Days Qty: 60 0RF Rx Instructions: fill on or after 10/23/21 duloxetine 60 mg capsule,delayed release(DR/EC) 60 mg PO BID@0700,1900 30 Days Qty: 60 3RF topiramate 100 mg tablet 100 mg PO DAILY Qty: 30 3RF Rx Instructions: Take 1 tablet by mouth once daily atenolol 25 mg tablet 25 mg PO DAILY Qty: 30 4RF tizanidine 4 mg capsule 4 mg PO TID PRN (Reason: muscle spasticity) Qty: 90 4RF gabapentin 800 mg tablet See Rx Instructions .ROUTE .COMPLEX Qty: 120 1RF Dose Instruction: TAKE ONE TABLET BY MOUTH FOUR TIMES DAILY Rx Instructions: TAKE ONE TABLET BY MOUTH FOUR TIMES DAILY cyanocobalamin (vitamin B-12) 1,000 mcg/mL solution 1,000 mcg SUBCUT .MONTHLY Qty: 1 12RF estradiol 0.5 mg tablet 0.5 mg PO DAILY 30 Days Qty: 30 11RF hydrochlorothiazide 25 mg tablet See Rx Instructions .ROUTE .COMPLEX Qty: 30 2RF Dose Instruction: Take 1 tablet by mouth once daily Rx Instructions: Take 1 tablet by mouth once daily pantoprazole 40 mg tablet,delayed release (DR/EC) See Rx Instructions .ROUTE .COMPLEX Qty: 60 2RF Dose Instruction: TAKE ONE TABLET BY MOUTH TWICE DAILY Rx Instructions: TAKE ONE TABLET BY MOUTH TWICE DAILY cetirizine 10 mg tablet See Rx Instructions .ROUTE .COMPLEX Qty: 30 2RF Dose Instruction: TAKE ONE TABLET BY MOUTH EVERY DAY NEEDED FOR allergy symptoms Rx Instructions: TAKE ONE TABLET BY MOUTH EVERY DAY NEEDED FOR allergy symptoms topiramate 25 mg tablet See Rx Instructions .ROUTE .COMPLEX Qty: 30 2RF Dose Instruction: TAKE ONE TABLET BY MOUTH EVERY DAY Rx Instructions: TAKE ONE TABLET BY MOUTH EVERY DAY oxybutynin chloride 5 mg tablet extended release 24 hr 5 mg PO DAILY Qty: 30 2RF Rx Instructions: TAKE 1 TABLET BY MOUTH ONCE DAILY FOR URGE INCONTINENCE sumatriptan succinate 100 mg tablet See Rx Instructions .ROUTE .COMPLEX Qty: 30 2RF Dose Instruction: TAKE ONE TABLET AT ONSET of migraines MAY REPEAT in TWO hours if symptoms persist. DO not exceed 2 doses per 24 hour peroid unless otherwise instructed by your physician Rx Instructions: TAKE ONE TABLET AT ONSET of migraines MAY REPEAT in TWO hours if symptoms persist. DO not exceed 2 doses per 24 hour peroid unless otherwise instructed by your physician cholecalciferol (vitamin D3) 1,250 mcg (50,000 unit) capsule See Rx Instructions .ROUTE .COMPLEX Qty: 8 0RF Dose Instruction: TAKE ONE CAPSULE BY MOUTH twice WEEKLY ON friday AND Rx Instructions: TAKE ONE CAPSULE BY MOUTH twice WEEKLY ON friday AND montelukast 10 mg tablet See Rx Instructions .ROUTE .COMPLEX Qty: 30 0RF Dose Instruction: TAKE ONE TABLET BY MOUTH ONCE DAILY AT 7PM Rx Instructions: TAKE ONE TABLET BY MOUTH ONCE DAILY AT 7PM levothyroxine 50 mcg tablet See Rx Instructions .ROUTE .COMPLEX Qty: 30 0RF Dose Instruction: Take 1 tablet by mouth once daily Rx Instructions: Take 1 tablet by mouth once daily ibuprofen 800 mg tablet 800 mg PO TID PRN (Reason: pain) Qty: 60 0RF acetaminophen 325 mg capsule 325 mg PO Q4H PRN (Reason: fever or pain) Qty: 60 0RF Discharge Orders: Discharge ED (Routine); Ordered 05/13/22 Ordered By: Renzo Arambula Referrals: Padmini Laird MD [Primary Care Provider] - Discharge Diet: Usual diet Discharge Activity: Increase activity as tolerated Patient Instructions: Musculoskeletal Pain (ED) Activity Restrictions/Additional Instructions: Activity as tolerated. Follow-up with primary care for further evaluation and treatment. Case management will contact you regarding appointment with podiatry/foot and ankle surgeon for further evaluation and treatment. Continue routine care as directed. Return to ER for new concerns. Coding Level of Care Code ED Cereal Chemist for Christine Fwd Exam Detailed
--- NOTE | 2022-05-13 17:53 | XRR_ITS ---
PROCEDURE INFORMATION: Exam: XR Right Foot Exam date and time: 05/13/2022 6:00 PM Age: 37 years old Clinical indication: Injury or trauma; Fall; Blunt trauma; Foot; Right; Additional info: Injury 6weeks no imaging TECHNIQUE: Imaging protocol: Radiologic exam of the Right foot. Views: 3 or more views. COMPARISON: No relevant prior studies available. FINDINGS: Bones/joints: Osseous structures are intact. Negative for fracture. Joint spaces are preserved. Soft tissues: Normal. XR/XR foot RT min 3V* [id number] IMPRESSION: No acute findings.
--- NOTE | 2022-05-14 10:24 | DCPLANNER ---
Addendum entered by Anuja Jernigan 05/15/22 13:57: Patient had a follow up appointment scheduled for 05.15.22 at ortho - patient did attend appointment. Original Note: publishing manager had message to schedule a follow up appointment for patient with ortho. publishing manager sent patients information to the front office staff at ortho. Patients information will be printed and reviewed. Clinic will call patient with appointment information.
== END 2022-05-13 19:02 | disposition home or self-care (01) ==
PROVIDERS: Emergency Provider Nurse Practitioner Family; PCP Family Medicine
DX: M25.571 Pain in right ankle and joints of right foot (principal); F17.210 Nicotine dependence, cigarettes, uncomplicated; I10 Essential (primary) hypertension
CPT/HCPCS: 73610; 73630; 99283

== ENCOUNTER → 2022-05-15 12:53 | Outpatient (BNVA) | payer MEDICARE, MEDICAID, SELFPAY | PROVIDERS: PCP Family Medicine; Visit Provider Podiatrist Foot & Ankle Surgery | DX: S93.401A Sprain of unspecified ligament of right ankle, initial encounter (principal); R60.9 Edema, unspecified; M25.371 Other instability, right ankle; M76.821 Posterior tibial tendinitis, right leg; W19.XXXA Unspecified fall, initial encounter | CPT/HCPCS: 99203 ==

== ENCOUNTER → 2022-05-27 09:30 | Outpatient (BNVA) | payer MEDICARE, MEDICAID, SELFPAY | PROVIDERS: PCP Family Medicine; Visit Provider Nurse Practitioner Family | DX: U07.1 COVID-19 (principal) | CPT/HCPCS: 87426 ==

== ENCOUNTER 2022-05-31 08:33 | Outpatient (CLI) | payer MEDICARE, MEDICAID, SELFPAY ==
--- NOTE | 2022-05-31 08:45 | MR_ITS ---
WS: [id number] INDICATION: Twisting injury several months ago. Dropfoot. TECHNIQUE: TECHNIQUE: MR of the right foot without gadolinium enhancement sagittal PD, axial T1, axia l PD, axial T2, axial STIR, sagittal STIR, sagittal T1 fat sat. Coronal PD and coronal T2 fat sat. COMPARISON: March 05, 2021 FINDINGS: Normal bone marrow signal in the talar dome. Normal medial and lateral malleolus. No eviden ce of avascular necrosis of the talar dome. No subchondral collapse talar dome. Subchondral edema in the posterior subtalar facet with edema and osteochondral lesion involving the c alcaneus. Associated edema with low signal rim. This is new from previous. Associated bony edema exte nding into the anterior process of the calcaneus. Hypertrophic spurring at the navicular. Normal bone marrow signal in the navicular and remainder of t he tarsal bones. Distal Achilles is normal in appearance. Small amount of tenosynovitis along the com mon peroneal tendon sheath. Normal extensor and flexor compartment tendons. Pes planus. No other susp icious findings. MR/MR ankle RT wo/w con [id number] IMPRESSION: 1. Subchondral cystic change with edema involving the posterior subtalar facet with adjacent edema in the calcaneal sulcus and anterior process of the calcan eus. Associated small osteochondral lesion in this area measuring 7 mm with jennifer rounding low signal rim. This is new from previous. 2. Normal medial and lateral malleolus. Normal ankle mortise. 3. Talar dome is normal in appearance. 4. Hypertrophic spurring at the navicular. 5. Small amount of tenosynovitis along the common peroneal tendon sheath. 6. Normal extensor and flexor compartment tendons. Distal Achilles appears nor mal.
== END 2022-05-31 08:34 | disposition home or self-care (01) ==
LOC: RAD 08:33
PROVIDERS: PCP Family Medicine; Visit Provider Podiatrist Foot & Ankle Surgery
DX: S93.601A Unspecified sprain of right foot, initial encounter (principal); M21.371 Foot drop, right foot; X58.XXXA Exposure to other specified factors, initial encounter
CPT/HCPCS: 73723; A9577

== ENCOUNTER → 2022-06-04 14:04 | Outpatient (BNVA) | payer MEDICARE, MEDICAID, SELFPAY | PROVIDERS: PCP Family Medicine; Visit Provider Podiatrist Foot & Ankle Surgery | DX: S93.401A Sprain of unspecified ligament of right ankle, initial encounter (principal); X58.XXXA Exposure to other specified factors, initial encounter; R60.9 Edema, unspecified; M76.821 Posterior tibial tendinitis, right leg; M25.371 Other instability, right ankle | CPT/HCPCS: 99213 ==

== ENCOUNTER 2022-06-17 06:00 | Outpatient (CLI) | payer MEDICARE, MEDICAID, SELFPAY | END 2022-06-17 23:45 | disposition home or self-care (01) | LOC: SLEEP 07-16 01:18 | PROVIDERS: PCP Family Medicine; Visit Provider Anesthesiology Pain Medicine | DX: E55.9 Vitamin D deficiency, unspecified (principal); E16.2 Hypoglycemia, unspecified; E03.9 Hypothyroidism, unspecified; D51.9 Vitamin B12 deficiency anemia, unspecified | CPT/HCPCS: 80053; 80061; 82306; 82607; 83721; 84443; 85025 ==

== ENCOUNTER → 2022-06-24 15:20 | Outpatient (BNVA) | payer MEDICARE, MEDICAID, SELFPAY | PROVIDERS: PCP Family Medicine; Visit Provider Podiatrist Foot & Ankle Surgery | DX: Z09 Encounter for follow-up examination after completed treatment for conditions other than malignant neoplasm (principal); S99.911A Unspecified injury of right ankle, initial encounter; R60.9 Edema, unspecified; M76.821 Posterior tibial tendinitis, right leg; X58.XXXA Exposure to other specified factors, initial encounter; S93.401A Sprain of unspecified ligament of right ankle, initial encounter; M25.371 Other instability, right ankle | CPT/HCPCS: 73610; 99214 ==

== ENCOUNTER 2022-07-04 10:40 | Day surgery (SDC) | payer MEDICARE, MEDICAID, SELFPAY ==
[2022-07-03 12:28] VITALS: BMI 42.7
[2022-07-03 17:16] VITALS: BMI 42.5
[2022-07-04] VITALS (8 sets, daily range): BP systolic 94–128; BP diastolic 51–70; PULSE 56–68; RESP 13–20; TEMP 36.3–36.5; O2SAT 98–100
--- NOTE | 2022-07-04 | SCC_ITS ---
Procedure done: 1. Medial calcaneal slide right foot CPT 50962 2. Farnsworth calcaneal osteotomy right foot CPT 32285-36 3. Open gastrocnemius recession right leg CPT 99143-36 4. Posterior tibial tendon repair right foot CPT 30740-21 5. Soft tissue mass excision right foot CPT 21418-49 18 seconds of fluoroscopic guidance, for a cumulative dose of 1.5 mGy, was provided to Dr. Clark by the radiology department. C-arm images of the RIGHT foot were saved for the patient's permanent record. [id number]
[2022-07-04] MEDS: sodium chloride 0.9% 1,000 ML 30 ML IV (11:02)
[2022-07-04] MEDS: acetaminophen 1,000 MG/100 ML PIGGYBACK 400 MG IV (11:02)
[2022-07-04] MEDS: gabapentin 300 mg Capsule PO (11:02)
--- NOTE | 2022-07-04 11:24 | P.HPUD_ITS ---
Surgery/Procedure H&P Update DATE OF PROCEDURE: July 04, 2022 DATE H&P PERFORMED: 06/24/22 CHANGES TO PREVIOUS DOCUMENTATION: No changes to previous documentation PREOP DIAGNOSIS: Right posterior tibial tendon dysfunction PRIMARY INDICATION FOR PROCEDURE: Right foot adult acquired flat foot with posterior tibial tendon dysfunction PLANNED PROCEDURE: Operation Date: 07/04/22 12:00 Proposed Procedures p Farnsworth calcaneal osteotomy CPT 73368, Medial calcaneal slide CPT 14268, FDL tendon transfer CPT 35188, Posterior tibial tendon repair CPT 39431, Tendoachilles lengthening CPT 40596,M76.821,M25.571(Right) - ANDREZ Devine Medial Calcaneal Slide 75212(Right) - ANDREZ Devine Tendon Transfer Foot(Right) - ANDREZ Devine Tendon Repair Foot(Right) - ANDREZ Devine Tendon Lengthening Foot(Right) - Ryan Clark DPM
--- NOTE | 2022-07-04 11:24 | W.PM.OPSUD ---
Surgery/Procedure H&P Update DATE OF PROCEDURE: July 04, 2022 DATE H&P PERFORMED: 06/24/22 CHANGES TO PREVIOUS DOCUMENTATION: No changes to previous documentation PREOP DIAGNOSIS: Right posterior tibial tendon dysfunction PRIMARY INDICATION FOR PROCEDURE: Right foot adult acquired flat foot with posterior tibial tendon dysfunction PLANNED PROCEDURE: Operation Date: 07/04/22 12:00 Proposed Procedures p Farnsworth calcaneal osteotomy CPT 87235, Medial calcaneal slide CPT 75303, FDL tendon transfer CPT 27556, Posterior tibial tendon repair CPT 32201, Tendoachilles lengthening CPT 19123,M76.821,M25.571(Right) - ANDREZ Devine Medial Calcaneal Slide 51377(Right) - ANDREZ Devine Tendon Transfer Foot(Right) - ANDREZ Devine Tendon Repair Foot(Right) - ANDREZ Devine Tendon Lengthening Foot(Right) - Ryan Clark DPM
--- NOTE | 2022-07-04 13:20 | P.ANESASSM_ITS ---
Pre-Anesthetic Assessment Height/Weight: Height 1.6 m Weight 108.862 kg Temp Pulse Resp BP Pulse Ox O2 Del Method 97.6 F 62 18 128/51 99 07/04/22 10:58 07/04/22 10:58 07/04/22 10:58 07/04/22 10:58 07/04/22 10:58 07/04/22 10:58 Preop Diagnosis: Right posterior tibial tendon dysfunction Operation Date: 07/04/22 12:00 Proposed Procedures p Farnsworth calcaneal osteotomy CPT 50668, Medial calcaneal slide CPT 14749, FDL tendon transfer CPT 00212, Posterior tibial tendon repair CPT 24957, Tendoachilles lengthening CPT 44920,M76.821,M25.571(Right) - ANDREZ Devine Medial Calcaneal Slide 53692(Right) - ANDREZ Devine Tendon Transfer Foot(Right) - ANDREZ Devine Tendon Repair Foot(Right) - ANDREZ Devine Tendon Lengthening Foot(Right) - Ryan Clark DPM Familial anesthetic complications: none Was Beta Lopez taken within 24 hours: Yes Was Clonidine taken within 24 hours: N/A Last intake: Intake Last Liquid Date 07/03/22 Last Liquid Time 23:59 Last Solid Date 07/03/22 Last Solid Time 23:59 Social No alcohol and No tobacco Exam alert, oriented x 3, clear to auscultation bilaterally and regular rate & rhythm Airway Submandibular: within normal limits Cervical ROM: within normal limits Mallampati: Class II CV/HEM Hypertension GI Gastroesophageal Reflux Disease Metabolic Morbid Obesity and Thyroid Disease Neuropsych chronic pain Anesthetic Plan ASA status: 3 Anesthesia: General and Regional (specify below) (right pop blk) Medications/Allergies Home Medications Medication Instructions Recorded Confirmed Last Taken Type o[place] AFO #1 ea 03/06/21 06/24/22 Unknown Rx Right AFO #1 ea 05/10/21 06/24/22 Unknown Rx acetaminophen 325 mg capsule 325 mg PO Q4H PRN fever or pain 10/04/21 07/03/22 Unknown Rx #60 caps ibuprofen 800 mg tablet 800 mg PO TID PRN pain #60 tabs 10/04/21 07/03/22 Unknown Rx estradiol 0.5 mg tablet 0.5 mg PO DAILY 30 days #30 tabs 0607/04/22 07/03/22 Rx atenolol 25 mg tablet 25 mg PO DAILY #90 tabs 06/17/22 07/04/22 07/03/22 Rx cholecalciferol (vitamin D3) 1,250 See Rx Instructions .Route 06/17/22 07/04/22 07/03/22 Rx mcg (50,000 unit) capsule .COMPLEX #24 caps cyanocobalamin (vitamin B-12) 1,000 mcg SUBCUT .MONTHLY #3 mL 06/17/22 07/03/22 Unknown Rx 1,000 mcg/mL injection solution topiramate 100 mg tablet 100 mg PO DAILY #90 tabs 06/17/22 07/04/22 07/03/22 Rx cyclobenzaprine 10 mg tablet 10 mg PO BID PRN muscle spasm #30 06/26/22 07/04/22 07/03/22 Rx tabs cetirizine 10 mg tablet (Zyrtec) 10 mg PO DAILY 07/03/22 07/04/22 07/03/22 History duloxetine 60 mg capsule,delayed 60 mg PO BID 07/03/22 07/04/22 07/03/22 History release gabapentin 800 mg tablet 800 mg PO QID 07/03/22 07/04/22 07/03/22 History hydrochlorothiazide 25 mg tablet 25 mg PO DAILY 07/03/22 07/04/22 07/03/22 History levothyroxine 50 mcg tablet 50 mcg PO DAILY 07/03/22 07/04/22 07/04/22 08:00 History montelukast 10 mg tablet 10 mg PO DAILY 07/03/22 07/04/22 07/03/22 History naloxegol 25 mg tablet (Movantik) 25 mg PO DAILY 07/03/22 07/04/22 07/03/22 History oxycodone 10 mg tablet 10 mg PO BID PRN Pain 07/03/22 07/04/22 07/04/22 08:00 History pantoprazole 40 mg tablet,delayed 40 mg PO BID 07/03/22 07/04/22 07/03/22 History release sumatriptan succinate 100 mg See Rx Instructions .Route 07/03/22 07/03/22 Unknown History tablet (Imitrex) .COMPLEX PRN Headache topiramate 25 mg tablet 25 mg PO DAILY 07/03/22 07/04/22 07/03/22 History hydrocodone 10 mg-acetaminophen 1 tab PO Q8H PRN pain 7 days #21 07/04/22 Unknown Rx 325 mg tablet tabs Allergies Allergy/AdvReac Type Severity Reaction Status Date / Time aspirin Allergy Severe heart Verified 07/03/22 17:06 palpitations cephalexin [From Keflex] Allergy Severe vomiting Verified 07/03/22 17:06 fentanyl Allergy Severe stopped Verified 07/03/22 17:06 heart ondansetron [From Zofran] Allergy Severe vomiting Verified 07/03/22 17:06 Current Medications Generic Name Dose Route Start Last Admin Trade Name Freq PRN Reason Stop Dose Admin Sodium Chloride 1,000 mls @ 30 mls/hr 07/04/22 10:45 07/04/22 11:02 Sodium Chloride 0.9% IV 07/05/22 10:44 30 mls/hr .Q24H SHARDA Administration PFSH Anesthesia Medical History Back pain with history of spinal surgery Chordoma of clivus [facility]--- Tom Bruner MD. Depression Encounter for long-term opiate analgesic use Gastro-esophageal reflux disease without esophagitis Hypertension Hypothyroidism No pertinent past medical history neghx: dm,dvt/pe PCP: Jolly Laird Obesity Opioid contract exists Right foot drop Spinal stenosis Surgical History H/O gastric bypass (~2011) H/O: hysterectomy 10/03/2021- Total vaginal hysterectomy performed by Dr. Tong at [facility] History of augmentation of right breast (~2001) saline implant History of back surgery (~2010) History of cholecystectomy (~2003) History of tubal ligation (~2014) Normal colonoscopy (~2011) Family History Family/Other Breast cancer Maternal Aunt--dx age 30's Diabetes Maternal and Paternal side in general Ovarian cancer Maternal Aunt--dx age 40's Thyroid disease Maternal side in general Father Heart disease Stroke Grandfather Heart disease Paternal Mother Hypercholesteremia Hypertension Thyroid disease Denies family history of Colon cancer Uterine cancer Social History Smoking and tobacco status: current every day smoker (4 cigarettes/day) cigarettes Packs smoked per day: 0.5 Years cigarettes smoked: 23 Second hand smoke exposure: Yes Alcohol intake: never Caregiver/support person: Yes Lives independently: Yes Household members: spouse and children Marital status: service: No Current occupational status: disabled History of recent travel: No Current gender identity: Female Special torres needs: No Agree to transfusion: Yes Female Reproductive History Date of last menstrual period: 04/29/21 Data Anesthesia Cardiac Studies: No Data to Display Anesthesia Procedures Nerve Block Nerve Block 1: Main Anesthesia: general anesthesia Time Out Performed: Yes Consent: requested by attending/covering physician, from patient, risks and benefits reviewed and patient agrees to proceed Nerve block location: popliteal (right) Anesthesia monitors applied: pulse oximetry, EKG, BP cuff and oxygen Nerve block position: semi sitting Anesthetic Used: ropivicaine 0.5% Amount of anesthesia used (mL): 30 Ultrasound used to: recognize landmarks Nerve Stimulator Used?: Yes Interscalene/Femoral BLK: 4 stimuplex 21 g needle used for position and inplane approach Injection: neg aspiration of heme Patient Tolerated Procedure: well Complications: none Additional Comments: Technically difficulty, added nerve stimulator
[2022-07-04] MEDS: clindamycin 600 MG/50 ML PREMIX 100 MG IV (14:05)
--- NOTE | 2022-07-04 16:53 | XR_ITS ---
WS: [id number] Right foot, 3 views, 07/04/2022 Clinical Data: post op Comparison: Right ankle, 06/24/2022 Findings: There are 2 orthopedic screws in the posterior calcaneus. There is a longitudinal screw in the anterior calcaneus. The remainder of the right foot is unremarka ble. XR/XR foot RT min 3V* 65084 Impression: Postoperative changes of the right calcaneus.
--- NOTE | 2022-07-04 17:17 | ANE.PACU2 ---
Inpatient post-anesthesia follow up: Airway intact: Yes Vital signs: Temperature 97.4 F Pulse Rate 56 Respiratory Rate 17 Blood Pressure 105/63 Pulse Oximetry 99 Oxygen Delivery Me thod Room Air Oxygen Flow Rate 6 Fraction of Inspir ed Oxygen Hydration adequate: Yes Nausea and vomiting: No Pain level: 2 Mental status: Baseline
[2022-07-04] MEDS: HYDROcodone-acetaminophen 10-325 mg Tablet 1 TAB PO (17:45)
--- NOTE | 2022-07-04 21:00 | PM.OP ---
Operative Report Date of procedure: July 04, 2022 Pre-op diagnosis: Preop Diagnosis Right posterior tibial tendon dysfunction Post-op diagnosis: 1. Adult acquired flatfoot right foot 2. Posterior tibial tendon tear right foot 3. Sinus tarsi soft tissue mass right foot Post-op findings: Adult acquired flatfoot of the right foot that was reduced and fixated intraoperatively with medial calcaneal slide osteotomy and Farnsworth calcaneal osteotomy. Posterior tibial tendon showed small tear measuring 1 cm but otherwise looked healthy and viable with no degeneration noted. Large sinus tarsi soft tissue mass with appearance of lipoma. Procedure done: 1. Medial calcaneal slide right foot CPT 52512 2. Farnsworth calcaneal osteotomy right foot CPT 29233-48 3. Open gastrocnemius recession right leg CPT 18077-85 4. Posterior tibial tendon repair right foot CPT 06942-21 5. Soft tissue mass excision right foot CPT 23834-81 Implants: Two 5.5 short threaded cannulated screws headless from [employer], one 4.0 fully threaded cannulated headed screw from [employer] 28 Specimens removed/disposition: Right foot soft tissue mass Pathology: Right foot soft tissue mass sent to pathology for ID Surgeon: Dr. Ryan Clark, D.P.M. Estimated blood loss: Less than 20 cc Complications: None Findings: See above Brief History: Patient has a long history of adult acquired flatfoot which is leading to subfibular impingement. She states that it is affecting her day-to-day activities and she has attempted conservative treatment up to this point. Patient has opted for surgical correction at this time. Procedure: Patient is a 37-year-old female that has a history of right adult acquired flatfoot. The patient has had the aforementioned chief complaint for some time. Conservative treatment measures have been attempted and the patient has opted for surgical intervention at this time. A lengthy discussion regarding the procedure, including risks and complications has been had with the patient and is noted in the recent clinic note. Written and verbal consent have been obtained. All patient questions have been answered to the patient?s satisfaction. No written or verbal guarantees have been given or implied. The patient has been NPO since midnight. The history has been reviewed and the history and physical is current. The signed consent was confirmed and placed in the patient chart. Patient imaging has been reviewed and is consistent with the diagnosis. Under mild sedation, the patient was brought into the operating room and placed on the table in the supine position. IV antibiotics were given by the anesthesia team as preoperative surgical prophylaxis. General sedation was then performed by the anesthesia team. A popliteal/saphenous block was performed by the anesthesia department. A pneumatic tourniquet was then placed about the right thigh. The operative extremity was then prepped and draped in the usual fashion. The extremity was then elevated and exsanguinated before the tourniquet was inflated to 325 mmHg. After inflation, the following procedure was then performed. Attention was directed to the medial aspect of the right leg at the level of the gastrocsoleus complex. A 5 cm incision was made over the medial aspect of the leg. Dissection was carried down through subcutaneous and superficial fascia to the level of the crural fascia which was incised. Blunt dissection was carried out to create a plane in between the gastrocnemius and soleus muscle bellies. A speculum was inserted and opened up to expose the gastrocnemius aponeurosis. This was then transected using a #15 blade. Good release was noted and increased dorsiflexion at the ankle joint was noted. Attention was directed to the lateral aspect of the right foot where a standard sinus tarsi incision was made from just inferior to the fibula down towards the base of the fourth metatarsal. Dissection was carried down through subcutaneous and superficial fascia. Any bleeders were cauterized as necessary. The peroneal tendon sheath was identified and retracted plantarly. Dissection was carried up to the sinus tarsi where there was noted to be a large soft tissue mass that had the appearance of a lipoma. It was yellow and lobulated. This was interfering with visualization of the angle of Gissane for the osteotomy. Careful dissection was carried out around the soft tissue mass and was removed from the foot and passed from the operative field to be sent to pathology. After dissection and exposure of the angle of the scene of the calcaneus, attention was then directed to the posterior aspect of the calcaneus. C-arm imaging was used to confirm the orientation of the calcaneus before a 5 cm oblique incision was made over the lateral wall the calcaneus. Dissection was carried down bluntly to the level of the calcaneus. Any bleeders were cauterized as necessary. Next, a sagittal bone saw was used to perform a calcaneal osteotomy through the body of the calcaneus. The calcaneus was then shifted in the medial direction. Next, attention was directed to the anterior calcaneus at the angle of the same where a sagittal bone saw was used to make an osseous cut through the calcaneus at this point. The cut was finished off with osteotome and mallet. Next, product delivery specialist retractor was used to open up the Farnsworth osteotomy site. It was decided that an 8 mm graft would be appropriate based on C-arm imaging. Next, the medial slide portion of the calcaneus was positioned in the appropriate position before guidewires for the 5.5 cannulated screws were inserted across the osteotomy site. Good position of the wires was noted and the wires were measured drilled countersunk before 5.5 headless short threaded cannulated screws were inserted over the wires across the osteotomy sites. These measured 50 and 52 mm. Good position of the screws was noted on C-arm imaging as well as clinically. Next, a millimeter Farnsworth wedge was inserted into the calcaneus. Next a guidewire for a 3.5 fully threaded cannulated screw was inserted over the wire. This was then countersunk measured and drilled before a 3.5 x 40 mm cannulated fully threaded screw was inserted across the graft site. Good positioning of the foot was noted on C-arm imaging as well as clinically. Uatsdin of the medial longitudinal arch was visualized. Next attention was directed to the medial aspect of the right foot where a 5 cm incision was made over the posterior tibial tendon and navicular tuberosity. Dissection was carried down to the posterior tibial tendon sheath which was incised to reveal the underlying posterior tibial tendon. The tendon was noted to be healthy and viable with only a small tear towards the insertion on the navicular tuberosity. The tear measured 1 cm in length. This was repaired with 2-0 Ethibond. The posterior tibial tendon was further inspected and again was noted to be healthy. Because of the appearance of the tendon it was not deemed necessary to excise any tendon or perform a tendon transfer at this time. All incisions were then irrigated with copious muscle sterile saline before attention was directed to closure. Deep tissue was closed with 2-0 Vicryl followed by subcuticular closure with 4-0 Vicryl and skin closure with 4-0 nylon in running interlocking fashion. All incisions were then further anesthetized using 20 cc of Exparel. The incision sites were then dressed with Xeroform 4 x 4 gauze Kerlix before a well-padded below the knee posterior splint was applied to the right lower extremity. The tourniquet was let down good hyperemic response was noted to all digits of the right foot. The patient tolerated the procedure and anesthesia well and without complication. The patient was transported from the operating room to the recovery room with vital signs stable and vascular status intact to all digits of the right foot. The patient was given both written and verbal instructions to remain nonweightbearing to the operative extremity, to keep dressings/splint clean, dry and intact and to take pain medication as directed. The patient will follow-up in the outpatient setting at their scheduled appointment. The patient was discharged with my personal number and was instructed to call if any questions or issues should arise. They were discharged home once anesthesia criteria was met.
== END 2022-07-04 17:55 | disposition home or self-care (01) ==
PROVIDERS: PCP Family Medicine; Visit Provider Podiatrist Foot & Ankle Surgery
PROC: (CPT 28300; principal; 2022-07-04 12:00)
PROC: (CPT 28298; 2022-07-04 12:00)
PROC: (CPT 27687; 2022-07-04 12:00)
PROC: (CPT 27687; 2022-07-04 12:00)
PROC: (CPT 28261; 2022-07-04 12:00)
DX: M25.571 Pain in right ankle and joints of right foot (principal); M21.41 Flat foot [pes planus] (acquired), right foot; S96.811A Strain of other specified muscles and tendons at ankle and foot level, right foot, initial encounter; X58.XXXA Exposure to other specified factors, initial encounter; I10 Essential (primary) hypertension; E66.01 Morbid (severe) obesity due to excess calories; Z68.41 Body mass index [BMI] 40.0-44.9, adult; K21.9 Gastro-esophageal reflux disease without esophagitis; G89.29 Other chronic pain; E03.9 Hypothyroidism, unspecified; E66.9 Obesity, unspecified; F17.210 Nicotine dependence, cigarettes, uncomplicated
CPT/HCPCS: 27687; 28039; 28200; 28300; 73630; 76000; 88307; C1713; C1762; C9290; J1170; J1200; J2704; J2795; J3490; J7030

== ENCOUNTER → 2022-07-08 08:42 | Outpatient (BNVA) | payer MEDICARE, MEDICAID, SELFPAY | PROVIDERS: PCP Family Medicine; Visit Provider Podiatrist Foot & Ankle Surgery | DX: Z09 Encounter for follow-up examination after completed treatment for conditions other than malignant neoplasm (principal); S99.911A Unspecified injury of right ankle, initial encounter; S93.401A Sprain of unspecified ligament of right ankle, initial encounter; X58.XXXA Exposure to other specified factors, initial encounter; R60.9 Edema, unspecified; M25.371 Other instability, right ankle; M76.821 Posterior tibial tendinitis, right leg | CPT/HCPCS: 29515; 73630; 99024 ==

== ENCOUNTER → 2022-07-16 08:47 | Outpatient (BNVA) | payer MEDICARE, MEDICAID, SELFPAY | PROVIDERS: PCP Family Medicine; Visit Provider Podiatrist Foot & Ankle Surgery | DX: Z98.890 Other specified postprocedural states (principal); S99.911A Unspecified injury of right ankle, initial encounter; S93.401A Sprain of unspecified ligament of right ankle, initial encounter; M76.821 Posterior tibial tendinitis, right leg; M25.371 Other instability, right ankle; R60.9 Edema, unspecified; X58.XXXA Exposure to other specified factors, initial encounter | CPT/HCPCS: 99024 ==

== ENCOUNTER → 2022-07-26 10:26 | Outpatient (BNVA) | payer MEDICARE, MEDICAID, SELFPAY | PROVIDERS: PCP Family Medicine; Visit Provider Podiatrist Foot & Ankle Surgery | DX: Z98.890 Other specified postprocedural states (principal); R60.9 Edema, unspecified; M25.371 Other instability, right ankle; S93.401A Sprain of unspecified ligament of right ankle, initial encounter; X58.XXXA Exposure to other specified factors, initial encounter; M76.821 Posterior tibial tendinitis, right leg; T81.31XA Disruption of external operation (surgical) wound, not elsewhere classified, initial encounter; Y83.8 Other surgical procedures as the cause of abnormal reaction of the patient, or of later complication, without mention of misadventure at the time of the procedure; L97.812 Non-pressure chronic ulcer of other part of right lower leg with fat layer exposed | CPT/HCPCS: 11042 ==

== ENCOUNTER → 2022-07-31 09:33 | Outpatient (BNVA) | payer MEDICARE, MEDICAID, SELFPAY | PROVIDERS: PCP Family Medicine; Visit Provider Podiatrist Foot & Ankle Surgery | DX: Z98.890 Other specified postprocedural states (principal); S93.401A Sprain of unspecified ligament of right ankle, initial encounter; R60.9 Edema, unspecified; M25.371 Other instability, right ankle; M76.821 Posterior tibial tendinitis, right leg; X58.XXXA Exposure to other specified factors, initial encounter; S99.921A Unspecified injury of right foot, initial encounter | CPT/HCPCS: 73630 ==

== ENCOUNTER 2022-07-31 14:23 | Outpatient (CLI) | payer MEDICARE, MEDICAID, SELFPAY | END 2022-07-31 14:24 | disposition home or self-care (01) | LOC: SPT 14:24 | PROVIDERS: PCP Family Medicine; Visit Provider Podiatrist Foot & Ankle Surgery | DX: Z47.89 Encounter for other orthopedic aftercare (principal) | CPT/HCPCS: 99024; L4361 ==

== ENCOUNTER 2022-08-15 06:00 | Outpatient (RCR) | payer MEDICARE, MEDICAID, SELFPAY | END 2022-09-14 23:59 | disposition home or self-care (01) | LOC: TPT 06:00 | PROVIDERS: PCP Family Medicine; Visit Provider Podiatrist Foot & Ankle Surgery | DX: M76.821 Posterior tibial tendinitis, right leg (principal) | CPT/HCPCS: 97110; 97163 ==

== ENCOUNTER → 2022-08-15 08:13 | Outpatient (BNVA) | payer MEDICARE, MEDICAID, SELFPAY | PROVIDERS: PCP Family Medicine; Visit Provider Podiatrist Foot & Ankle Surgery | DX: Z98.890 Other specified postprocedural states (principal); S99.911A Unspecified injury of right ankle, initial encounter; S93.401A Sprain of unspecified ligament of right ankle, initial encounter; M25.571 Pain in right ankle and joints of right foot; Z09 Encounter for follow-up examination after completed treatment for conditions other than malignant neoplasm; R60.9 Edema, unspecified; M25.371 Other instability, right ankle; M76.821 Posterior tibial tendinitis, right leg; X58.XXXA Exposure to other specified factors, initial encounter | CPT/HCPCS: 73630; 99024 ==

== ENCOUNTER 2022-09-03 14:52 | Outpatient (CLI) | payer MEDICARE, MEDICAID, SELFPAY | END 2022-09-03 14:53 | disposition home or self-care (01) | LOC: SPT 14:52 | PROVIDERS: PCP Family Medicine; Visit Provider Podiatrist Foot & Ankle Surgery | DX: Z46.89 Encounter for fitting and adjustment of other specified devices (principal); S99.921D Unspecified injury of right foot, subsequent encounter; X58.XXXD Exposure to other specified factors, subsequent encounter; M76.821 Posterior tibial tendinitis, right leg; R60.9 Edema, unspecified; M25.371 Other instability, right ankle; S93.401A Sprain of unspecified ligament of right ankle, initial encounter; T81.31XA Disruption of external operation (surgical) wound, not elsewhere classified, initial encounter; X58.XXXA Exposure to other specified factors, initial encounter; Y83.8 Other surgical procedures as the cause of abnormal reaction of the patient, or of later complication, without mention of misadventure at the time of the procedure | CPT/HCPCS: 11042; 97760; 99024; L1902 ==

== ENCOUNTER 2022-09-15 06:00 | Outpatient (RCR) | payer MEDICARE, MEDICAID, SELFPAY | END 2022-10-15 23:59 | disposition home or self-care (01) | LOC: TPT 06:00 | PROVIDERS: PCP Family Medicine; Visit Provider Podiatrist Foot & Ankle Surgery | DX: M76.821 Posterior tibial tendinitis, right leg (principal) | CPT/HCPCS: 97110; 97140 ==

== ENCOUNTER → 2022-09-20 13:49 | Outpatient (BNVA) | payer MEDICARE, MEDICAID, SELFPAY | PROVIDERS: PCP Family Medicine; Visit Provider Podiatrist Foot & Ankle Surgery | DX: T81.31XA Disruption of external operation (surgical) wound, not elsewhere classified, initial encounter (principal); Y83.8 Other surgical procedures as the cause of abnormal reaction of the patient, or of later complication, without mention of misadventure at the time of the procedure; R60.9 Edema, unspecified; M25.371 Other instability, right ankle; S93.401A Sprain of unspecified ligament of right ankle, initial encounter; X58.XXXA Exposure to other specified factors, initial encounter; M76.821 Posterior tibial tendinitis, right leg | CPT/HCPCS: 11042; 73630 ==

== ENCOUNTER 2022-10-16 06:00 | Outpatient (RCR) | payer MEDICARE, MEDICAID, SELFPAY | END 2022-11-12 23:59 | disposition home or self-care (01) | LOC: TPT 06:00 | PROVIDERS: PCP Family Medicine; Visit Provider Podiatrist Foot & Ankle Surgery | DX: M76.821 Posterior tibial tendinitis, right leg (principal) | CPT/HCPCS: 97110; 97164 ==

== ENCOUNTER → 2022-10-18 14:44 | Outpatient (BNVA) | payer MEDICARE, MEDICAID, SELFPAY | PROVIDERS: PCP Family Medicine; Visit Provider Podiatrist Foot & Ankle Surgery | DX: T81.31XA Disruption of external operation (surgical) wound, not elsewhere classified, initial encounter (principal); Y83.3 Surgical operation with formation of external stoma as the cause of abnormal reaction of the patient, or of later complication, without mention of misadventure at the time of the procedure; M25.371 Other instability, right ankle; S93.401A Sprain of unspecified ligament of right ankle, initial encounter; M76.821 Posterior tibial tendinitis, right leg; X58.XXXA Exposure to other specified factors, initial encounter | CPT/HCPCS: 11042 ==

== ENCOUNTER → 2022-11-08 12:45 | Outpatient (BNVA) | payer MEDICARE, MEDICAID, SELFPAY | PROVIDERS: PCP Family Medicine; Visit Provider Podiatrist Foot & Ankle Surgery | DX: T81.31XA Disruption of external operation (surgical) wound, not elsewhere classified, initial encounter (principal); Y83.8 Other surgical procedures as the cause of abnormal reaction of the patient, or of later complication, without mention of misadventure at the time of the procedure; S93.401A Sprain of unspecified ligament of right ankle, initial encounter; X58.XXXA Exposure to other specified factors, initial encounter; M76.821 Posterior tibial tendinitis, right leg; R60.9 Edema, unspecified; M25.371 Other instability, right ankle | CPT/HCPCS: 11042 ==

== ENCOUNTER 2022-11-13 06:00 | Outpatient (RCR) | payer MEDICARE, MEDICAID, SELFPAY | END 2022-12-13 23:59 | disposition home or self-care (01) | LOC: TPT 06:00 | PROVIDERS: PCP Family Medicine; Visit Provider Podiatrist Foot & Ankle Surgery | DX: M76.821 Posterior tibial tendinitis, right leg (principal) | CPT/HCPCS: 97110 ==

== ENCOUNTER → 2022-11-29 13:40 | Outpatient (BNVA) | payer MEDICARE, SELFPAY | PROVIDERS: PCP Family Medicine; Visit Provider Podiatrist Foot & Ankle Surgery | DX: M25.571 Pain in right ankle and joints of right foot (principal); R60.9 Edema, unspecified | CPT/HCPCS: 99213 ==

== ENCOUNTER 2022-12-14 06:00 | Outpatient (RCR) | payer MEDICARE, MEDICAID, SELFPAY | END 2023-01-12 23:59 | disposition home or self-care (01) | LOC: TPT 06:00 | PROVIDERS: PCP Family Medicine; Visit Provider Podiatrist Foot & Ankle Surgery | DX: M76.821 Posterior tibial tendinitis, right leg (principal) | CPT/HCPCS: 97110; 97164 ==

== ENCOUNTER → 2023-01-16 10:30 | Outpatient (BNVA) | payer MEDICARE, MEDICAID, SELFPAY | PROVIDERS: PCP Family Medicine; Visit Provider Family Medicine | DX: D51.9 Vitamin B12 deficiency anemia, unspecified (principal); E03.9 Hypothyroidism, unspecified; E55.9 Vitamin D deficiency, unspecified; I10 Essential (primary) hypertension; R53.83 Other fatigue; C41.0 Malignant neoplasm of bones of skull and face; F32.1 Major depressive disorder, single episode, moderate; E66.9 Obesity, unspecified; R05.9 Cough, unspecified | CPT/HCPCS: 80053; 80061; 82306; 82607; 83540; 84443 ==

== ENCOUNTER 2023-01-17 10:30 | Emergency (ER) | payer MEDICARE, MEDICAID, SELFPAY ==
[2023-01-17] VITALS (48 sets, daily range): BP systolic 101–137; BP diastolic 63–97; PULSE 61–82; RESP 10–28; TEMP 36.7; O2SAT 88–100
--- NOTE | 2023-01-17 10:35 | XR_ITS ---
WS: [id number] Portable AP upright chest, 01/17/2023 Clinical Data: dyspnea/cough Comparison: None. Findings: No nodules, masses or effusions are seen. The heart is normal. The pulmonary vascularity is not increased. No pneumonia or pneumothorax is seen. There are monitor leads on the chest wall. XR/XR chest 1V portable [id number] Impression: Negative chest.
--- NOTE | 2023-01-17 10:35 | ECG_ITS ---
[facility] Test Date: 2023-01-17 Pat Name: Gin Correa Department: Room: Gender: Female Vamp Seamer: : 1985 Requested By: [address] Order Number: [id number] Yuly MD: Matt Goldstein M.D. Measurements Intervals [place] Rate: 73 P: 41 OR: 145 QRS: 56 QRSD: 100 T: 15 QT: 382 QTc: 422 Interpretive Statements SINUS RHYTHM INCOMPLETE RIGHT BUNDLE BRANCH BLOCK [90+ ms QRS DURATION, TERMINAL R IN V1/V2, 40+ ms S IN I/aVL/V4/V5/V6] MODERATE T-WAVE ABNORMALITY, CONSIDER ANTERIOR ISCHEMIA [-0.1+ mV T-WAVE IN V3/V4] No previous ECG available for comparison Electronically Signed On 01-17-2023 13:25:52 CDT by Matt Goldstein M.D. [id number]
[2023-01-17 11:11] LABS: Add Urine Microscopic? NO; Charge for UA Resulting for Rev
[2023-01-17 11:14] LABS: Basophils # 0.1 10^3/uL (0.0-0.1); Basophils % 0.6 %; Eosinophils # 0.2 10^3/uL (0.0-0.8); Eosinophils % 2.1 %; Hematocrit 40.7 % (37.0-47.0); Lymphocytes # 2.8 10^3/uL (0.8-4.8); Lymphocytes % 34.1 %; Mean Corpuscular HGB Conc 31.9 g/dL (30.0-36.0); Mean Corpuscular Volume 100.2 fl (81-99); Monocytes # 0.5 10^3/uL (0.2-0.9); Monocytes % 5.6 %; Neutrophils # 4.72 10^3/uL (1.8-7.7); Neutrophils % 57.2 %; Nucleated Red Blood Cells % 0 %; Platelet Count 296 10^3/cmm (130-400); Red Blood Count 4.06 10^6/uL (4.1-5.3); Red Cell Distribution Width 13.2 % (12.1-15.1); White Blood Count 8.2 10^3/uL (4.0-10.0)
[2023-01-17 11:17] LABS: Blood Urine Neg (Negative); Glucose Urine UA Norm (Normal); Ketones Urine Negative (Negative); Nitrate Urine Negative (Negative); Protein Urine Neg (Negative); Urine Appearance Clear (CLEAR); Urine Color Yellow (Yellow); pH Urine 7 (5-7)
[2023-01-17 11:18] LABS: Bilirubin Urine Neg (Negative); Leukocyte Esterase Urine Negative (Negative); Urobilinogen Urine Neg (Negative)
[2023-01-17 11:31] LABS: Alanine Aminotransferase 14 U/L (0-33); Albumin Level 4.1 g/dL (3.5-5.2); Alkaline Phosphatase 120 U/L (35-105); Anion Gap 13.9 (5-19); Aspartate Amino Transferase 15 U/L (0-32); Blood Urea Nitrogen 22 mg/dL (6-20); Calcium 9.1 mg/dL (8.5-10.5); Carbon Dioxide 26 mmol/L (22-29); Chloride 104 mmol/L (98-107); Globulin 2.9 g/dL (1.3-4.6); Glucose 81 mg/dL (65-115); Osmolality Calculated 292 mOsm/kg (285-295); Potassium 3.9 mmol/L (3.5-5.1); Sodium 140 mmol/L (136-145); Total Bilirubin 0.2 mg/dL (0.15-1.2)
--- NOTE | 2023-01-17 11:34 | PC.PHAR ---
pt states she takes care of her own medications-pt states she is no longer taking atenolol 25mg daily or linzess 290mcg daily-pt states she hasnt started taking the nurtec odt 75mg tab states waiting for it to be sent to her-pt states she still take vitamin d3 50,000 units twice a week and vitamin b-12 monthly ext med history doesnt show when last filled rxs written 06/17/22-notes are made in the pharmacy comments
[2023-01-17 11:45] LABS: Troponin(5th) Baseline 22 ng/L (0-10)
--- NOTE | 2023-01-17 11:46 | W.ED.CHESTPA ---
HPI - Chest Pain General: Chief Complaint: Chest Pain Stated Complaint: cp Time Seen by Provider: 01/17/23 10:31 Source: patient Mode of arrival: EMS History of Present Illness: 38-year-old female presents emergency room with complaint of chest pain and weakness. Yesterday states she just did not feel well. She was at the clinic today began having chest pain rating to her right shoulder. She became very nauseated with it and somewhat diaphoretic. She is not previously had episodes like this she tells me that several years ago in [place] they told her she had a small heart attack but she never had any intervention and no angiogram stenting does not even sound like she ever had any stress testing. States they gave her sublingual nitro. Patient continued to have chest pain now its reproducible with palpation across the anterior chest. She is obese but denies any history of any diabetes mellitus. MD complaint: chest pain Timing of current episode: episodic Onset: during rest Pain location: substernal Pain radiation: right shoulder Severity: moderate Quality: sharp Relieving factors: nothing Associated symptoms: Reports nausea; Deny abdominal pain, diaphoresis, dyspnea, fever(s), leg edema, palpitations, sense of impending doom, syncope or vomiting Review of Systems Const: Denies: fever(s), chills, fatigue, malaise or diaphoresis Card: Reports: chest pain; Denies: palpitations, irregular heart rhythm, edema or syncope Resp: Denies: dyspnea GI: Reports: nausea; Denies: abdominal pain or vomiting : Denies: flank pain, difficulty voiding, dysuria, urinary frequency or urinary urgency Skin/Breast: Denies: rash or pruritus PFSH ED PFSH: Medical History Back pain with history of spinal surgery Chordoma of clivus [facility]--- Tom Bruner MD. Depression Encounter for long-term opiate analgesic use Gastro-esophageal reflux disease without esophagitis Hypertension Hypothyroidism No pertinent past medical history neghx: dm,dvt/pe PCP: Jolly Laird Obesity Opioid contract exists Right foot drop Spinal stenosis Surgical History H/O gastric bypass (~2011) H/O: hysterectomy 10/03/2021- Total vaginal hysterectomy performed by Dr. Tong at [facility] History of augmentation of right breast (~2001) saline implant History of back surgery (~2010) History of cholecystectomy (~2003) History of tubal ligation (~2014) Normal colonoscopy (~2011) Family History Family/Other Breast cancer Maternal Aunt--dx age 30's Diabetes Maternal and Paternal side in general Ovarian cancer Maternal Aunt--dx age 40's Thyroid disease Maternal side in general Father Heart disease Stroke Grandfather Heart disease Paternal Mother Hypercholesteremia Hypertension Thyroid disease Denies family history of Colon cancer Uterine cancer Social History Smoking and tobacco status: current every day smoker cigarettes Packs smoked per day: 0.5 Years cigarettes smoked: 23 Second hand smoke exposure: Yes Alcohol intake: never Substance/Drug Use: unknown Caregiver/support person: Yes Lives independently: Yes Household members: spouse and children Marital status: service: No Current occupational status: disabled Current gender identity: Female Special torres needs: No Agree to transfusion: Yes Physical Exam Const: GENERAL APPEARANCE: cooperative and comfortable ORIENTATION/CONSCIOUSNESS: Yes awake, Yes oriented to person, Yes oriented to place and Yes oriented to time HENMT: COMMON NORMALS: normocephalic, atraumatic and hearing grossly normal bilaterally HEAD & SCALP: normocephalic and atraumatic Resp: COMMON NORMALS: normal respiratory effort, No retractions, No use of accessory muscles and clear to auscultation bilaterally AUSCULTATION: clear to auscultation bilaterally Cardio: COMMON NORMALS: regular rate, regular rhythm and No murmurs present (Cardio) RATE: regular rate RHYTHM: regular rhythm GI: COMMON NORMALS: Soft to palpation and No hepatosplenomegaly present AUSCULTATION: Yes normoactive bowel sounds PALPATION: Yes Soft to palpation, No Tenderness to palpation present (GI), No Guarding due to palpation present (GI) and Yes No hepatosplenomegaly present Extremity: COMMON NORMALS: normal to inspection, capillary refill normal, no clubbing, cyanosis or edema, no calf tenderness and no pedal edema Neuro: SENSORIUM/ORIENTATION: Yes oriented to person, Yes oriented to place and Yes oriented to time Skin: COMMON NORMALS: no rashes or lesions noted GENERAL SKIN EXAM: no rashes or lesions noted Course Vital Signs: Vital signs: Vital Signs Temperature 98.0 F 01/17/23 10:31 Pulse Rate 73 01/17/23 14:56 Respiratory Rate 19 H 01/17/23 14:56 Blood Pressure 113/66 01/17/23 14:56 Pulse Oximetry 99 01/17/23 14:56 Oxygen Delivery Me thod Room Air 01/17/23 10:31 MDM - Chest Pain Medical Decision Making EKG shows no acute ST elevation. There was some T wave inversion present when she came in and is still present at the time of discharge but she has had no further chest discomfort states all of her symptoms has resolved and her cardiac enzymes are negative. We will discharge her home started on a baby aspirin daily set up for an outpatient Lexiscan sestamibi stress test. On chest x-ray there is no pneumonia pneumothorax or widening mediastinum. She has been having more reflux symptoms lately encouraged her to use Pepcid or omeprazole [id number]. Medical Records I reviewed the patient's medical records. Lab Data I reviewed the patient's lab results. 01/17/23 11:05 01/17/23 11:05 Radiology Impressions Chest X-Ray 01/17/23 10:35 Impression: Negative chest. Laboratory Results WBC 8.2 10^3/uL (4.0-10.0) 01/17/23 11:05 RBC 4.06 10^6/uL (4.1-5.3) L 01/17/23 11:05 Hgb 13.0 g/dL (11.5-15.3) 01/17/23 11:05 Hct 40.7 % (37.0-47.0) 01/17/23 11:05 MCV 100.2 fl (81-99) H 01/17/23 11:05 MCH 32.0 pg (28.0-34.0) 01/17/23 11:05 MCHC 31.9 g/dL (30.0-36.0) 01/17/23 11:05 RDW 13.2 % (12.1-15.1) 01/17/23 11:05 Plt Count 296 10^3/cmm (130-400) 01/17/23 11:05 MPV 10.0 fL (7.4-10.4) 01/17/23 11:05 Neut % (Auto) 57.2 % 01/17/23 11:05 Lymph % (Auto) 34.1 % 01/17/23 11:05 Sabine % (Auto) 5.6 % 01/17/23 11:05 Eos % (Auto) 2.1 % 01/17/23 11:05 Baso % (Auto) 0.6 % 01/17/23 11:05 Neut # (Auto) 4.72 10^3/uL (1.8-7.7) 01/17/23 11:05 Lymph # (Auto) 2.8 10^3/uL (0.8-4.8) 01/17/23 11:05 Sabine # (Auto) 0.5 10^3/uL (0.2-0.9) 01/17/23 11:05 Eos # (Auto) 0.2 10^3/uL (0.0-0.8) 01/17/23 11:05 Baso # (Auto) 0.1 10^3/uL (0.0-0.1) 01/17/23 11:05 Nucleated RBC % (auto) 0 % 01/17/23 11:05 Nucleated RBCs # 0.0 /100WBC 01/17/23 11:05 Sodium 140 mmol/L (136-145) 01/17/23 11:05 Potassium 3.9 mmol/L (3.5-5.1) 01/17/23 11:05 Chloride 104 mmol/L (98-107) 01/17/23 11:05 Carbon Dioxide 26 mmol/L (22-29) 01/17/23 11:05 Anion Gap 13.9 (5-19) 01/17/23 11:05 BUN 22 mg/dL (6-20) H 01/17/23 11:05 Creatinine 1.1 mg/dL (0.5-0.9) H 01/17/23 11:05 GFR Calculation 55.0 mL/min (90-130) L 01/17/23 11:05 Glucose 81 mg/dL (65-115) 01/17/23 11:05 Calculated Osmolality 292 mOsm/kg (285-295) 01/17/23 11:05 Calcium 9.1 mg/dL (8.5-10.5) 01/17/23 11:05 Total Bilirubin 0.2 mg/dL (0.15-1.2) 01/17/23 11:05 AST 15 U/L (0-32) 01/17/23 11:05 ALT 14 U/L (0-33) 01/17/23 11:05 Alkaline Phosphatase 120 U/L (35-105) H 01/17/23 11:05 Troponin T Baseline 22 ng/L (0-10) H 01/17/23 11:05 Troponin T 120 Minute 20.34 ng/L (0-10) H 01/17/23 13:30 Delta Troponin T -1.66 ABS# (0-10) L 01/17/23 13:30 Total Protein 7.0 g/dL (6.6-8.7) 01/17/23 11:05 Albumin 4.1 g/dL (3.5-5.2) 01/17/23 11:05 Globulin 2.9 g/dL (1.3-4.6) 01/17/23 11:05 Urine Color Yellow (Yellow) 01/17/23 10:45 Urine Appearance Clear (CLEAR) 01/17/23 10:45 Urine pH 7 (5-7) 01/17/23 10:45 Ur Specific [place] 1.010 (1.005-1.030) 01/17/23 10:45 Urine Protein Neg (Negative) 01/17/23 10:45 Urine Glucose (UA) Norm (Normal) 01/17/23 10:45 Urine Ketones Negative (Negative) 01/17/23 10:45 Urine Blood Neg (Negative) 01/17/23 10:45 Urine Nitrate Negative (Negative) 01/17/23 10:45 Urine Bilirubin Neg (Negative) 01/17/23 10:45 Urine Urobilinogen Neg mg/dL (Negative) 01/17/23 10:45 Ur Leukocyte Esterase Negative (Negative) 01/17/23 10:45 Discharge Plan Discharge Patient Disposition: Home Clinical Impression: Atypical chest pain Condition: Stable Prescriptions: No Action (DME) Right AFO See Rx Instructions .Route .MEDSUPPLY Qty: 1 0RF Rx Instructions: As directed (DME) o[place]ob[place] AFO See Rx Instructions .Route .MEDSUPPLY Qty: 1 0RF Rx Instructions: To the right lower extremity. (DME) cam boot See Rx Instructions .Route .MEDSUPPLY Qty: 1 0RF Rx Instructions: As directed cholecalciferol (vitamin D3) 1,250 mcg (50,000 unit) capsule See Rx Instructions .ROUTE .COMPLEX Qty: 24 3RF Dose Instruction: TAKE ONE CAPSULE BY MOUTH twice WEEKLY ON friday AND Rx Instructions: TAKE ONE CAPSULE BY MOUTH twice WEEKLY ON friday AND cyanocobalamin (vitamin B-12) 1,000 mcg/mL solution 1,000 mcg SUBCUT .MONTHLY Qty: 3 6RF (DME) ASO See Rx Instructions .Route .MEDSUPPLY Qty: 1 0RF Rx Instructions: As directed (DME) custom inserts code [id number] See Rx Instructions .Route .MEDSUPPLY Qty: 1 0RF Rx Instructions: As directed to SHANTANU&O Nurtec ODT 75 mg tablet,disintegrating 75 mg PO .qod Qty: 16 5RF Rx Instructions: (not started as of 01/17/23) ibuprofen 800 mg tablet 800 mg PO TID PRN (Reason: pain) Qty: 60 0RF acetaminophen 325 mg capsule 325 mg PO Q4H PRN (Reason: fever or pain) Qty: 60 0RF sumatriptan succinate [Imitrex] 100 mg tablet See Rx Instructions .ROUTE .COMPLEX PRN (Reason: Headache) Rx Instructions: TAKE 1 tab on onset of headache as needed, may take another in 2 hours, no more than 2 in 24 hours. topiramate 25 mg tablet 25 mg PO BEDTIME Rx Instructions: takes with 100mg to =125mg levothyroxine 50 mcg tablet 50 mcg PO QAM pantoprazole 40 mg tablet,delayed release (DR/EC) 40 mg PO BID montelukast 10 mg tablet 10 mg PO BEDTIME hydrochlorothiazide 25 mg tablet 25 mg PO QAM duloxetine 60 mg capsule,delayed release(DR/EC) 60 mg PO BID hydrocodone-acetaminophen 10-325 mg tablet 1 tab PO BID Symbicort 160-4.5 mcg/actuation Hfa Aerosol Inhaler 2 puff INHALATION BID PRN (Reason: unknown) lidocaine 5 % ointment 1 applic topical DAILY PRN (Reason: Pain) cyclobenzaprine 10 mg tablet 10 mg PO BID cetirizine 10 mg tablet 10 mg PO QAM gabapentin 800 mg tablet 800 mg PO QID estradiol 0.5 mg tablet 0.5 mg PO BEDTIME topiramate 100 mg tablet 100 mg PO BEDTIME Rx Instructions: takes with 25mg to =125mg Movantik 25 mg tablet 25 mg PO QAM Rx Instructions: *must take ON a EMPTY stomach; no food ONE hour AFTER OR 1 TO 3hours BEFORE dose* Discharge Orders: Discharge ED (Routine); Ordered 01/17/23 Ordered By: Francisco Javier Gallardo Referrals: Padmini Laird MD [Primary Care Provider] - Discharge Diet: Usual diet Discharge Activity: Limit activity as instructed Patient Instructions: Opioid Safety, Pain Management Activity Restrictions/Additional Instructions: You were seen today for chest discomfort. Your chest comfort was reproducible with palpation across the anterior chest wall EKG did not show acute changes and your cardiac enzymes did not show any significant change. We will discharge you home recommend you take a baby aspirin daily we will also set you up for an outpatient Lexiscan sestamibi stress test. Coding Level of Care Code ED Tool Maker for Christine Cason
--- NOTE | 2023-01-17 12:38 | ECG_ITS ---
[facility] Test Date: 2023-01-17 Pat Name: Gin Correa Department: Room: Gender: Female Financial Data Analyst: : 1985 Requested By: Francisco Javier Street Order Number: [id number] Yuly MD: Matt Goldstein M.D. Measurements Intervals [place] Rate: 65 P: 38 [place]: 155 QRS: 53 QRSD: 102 T: 10 QT: 401 QTc: 420 Interpretive Statements SINUS RHYTHM MODERATE T-WAVE ABNORMALITY, CONSIDER ANTERIOR ISCHEMIA [-0.1+ mV T-WAVE IN V3/V4] Compared to ECG 01/17/2023 10:38:15 Incomplete right bundle-branch block no longer present T-wave abnormality still present Possible ischemia still present Electronically Signed On 01-17-2023 13:26:50 CDT by Matt Goldstein M.D. [id number]
[2023-01-17 14:13] LABS: Troponin 5 2HR 20.34 ng/L (0-10)
[2023-01-17 14:21] LABS: Troponin 5 2HR Delta -1.66 ABS# (0-10)
--- NOTE | 2023-01-17 14:44 | ECG_ITS ---
[facility] Test Date: 2023-01-17 Pat Name: Gin Correa Department: Room: Gender: Female Medicaid Billing Specialist: : 1985 Requested By: Francisco Javier Street Order Number: [id number] Yuly MD: Matt Goldstein M.D. Measurements Intervals [place] Rate: 70 P: 43 [place]: 154 QRS: 64 QRSD: 102 T: 26 QT: 392 QTc: 425 Interpretive Statements SINUS RHYTHM NONSPECIFIC T-WAVE ABNORMALITY Compared to ECG 01/17/2023 12:38:31 Possible ischemia no longer present T-wave abnormality still present Electronically Signed On 01-17-2023 23:06:14 CDT by Matt Goldstein M.D. [id number]
--- NOTE | 2023-01-21 10:26 | DCPLANNER ---
Addendum entered by Anuja Jernigan 02/21/23 10:02: Patient had a stress test scheduled for 02.20.23 - patient did not attend appointment. Addendum entered by Anuja Jernigan 01/29/23 14:51: Patient has an outpatient stress test scheduled for Friday, February 20, 2023 at 9:00. Original Note: medical laboratory manager had message to schedule an outpatient stress test for patient. medical laboratory manager faxed patients information to centralized scheduling, who will call patient with appointment information.
== END 2023-01-17 14:57 | disposition home or self-care (01) ==
PROVIDERS: Emergency Provider Family Medicine; PCP Family Medicine
DX: R07.89 Other chest pain (principal); F17.210 Nicotine dependence, cigarettes, uncomplicated; I10 Essential (primary) hypertension
CPT/HCPCS: 36415; 71045; 80053; 81003; 84484; 85025; 93005; 99285

== ENCOUNTER 2023-01-28 13:54 | Outpatient (RCR) | payer MEDICARE, MEDICAID, SELFPAY | END 2023-02-12 23:59 | disposition home or self-care (01) | LOC: TPT 13:54 | PROVIDERS: PCP Family Medicine; Visit Provider Podiatrist Foot & Ankle Surgery | DX: M76.821 Posterior tibial tendinitis, right leg (principal) | CPT/HCPCS: 97110 ==

== ENCOUNTER 2023-02-13 06:00 | Outpatient (RCR) | payer MEDICARE, MEDICAID, SELFPAY | END 2023-03-14 23:59 | disposition home or self-care (01) | LOC: TPT 06:00 | PROVIDERS: PCP Family Medicine; Visit Provider Podiatrist Foot & Ankle Surgery | DX: M76.821 Posterior tibial tendinitis, right leg (principal) | CPT/HCPCS: 97110; 97164 ==

== ENCOUNTER → 2023-02-26 13:19 | Outpatient (BNVA) | payer MEDICARE, MEDICAID, SELFPAY | PROVIDERS: PCP Family Medicine; Visit Provider Podiatrist Foot & Ankle Surgery | DX: M25.571 Pain in right ankle and joints of right foot (principal); M21.371 Foot drop, right foot; R60.9 Edema, unspecified | CPT/HCPCS: 99213 ==

== ENCOUNTER → 2023-07-09 10:46 | Outpatient (BNVA) | payer MEDICARE, MEDICAID, SELFPAY | PROVIDERS: PCP Family Medicine; Visit Provider Nurse Practitioner | DX: S99.912A Unspecified injury of left ankle, initial encounter (principal); X58.XXXA Exposure to other specified factors, initial encounter | CPT/HCPCS: 73610 ==

== ENCOUNTER → 2023-07-11 10:53 | Outpatient (BNVA) | payer MEDICARE, MEDICAID, SELFPAY | PROVIDERS: PCP Family Medicine; Visit Provider Podiatrist Foot & Ankle Surgery | DX: S86.112A Strain of other muscle(s) and tendon(s) of posterior muscle group at lower leg level, left leg, initial encounter; M84.372A Stress fracture, left ankle, initial encounter for fracture; W01.0XXA Fall on same level from slipping, tripping and stumbling without subsequent striking against object, initial encounter; Y92.219 Unspecified school as the place of occurrence of the external cause | CPT/HCPCS: 99213 ==

== ENCOUNTER 2023-08-13 08:51 | Outpatient (CLI) | payer MEDICARE, MEDICAID, SELFPAY ==
--- NOTE | 2023-08-13 09:30 | MR_ITS ---
WS: [id number] MRI LEFT ANKLE WITHOUT CONTRAST. COMPARISON: Radiograph 07/09/2023 Multiplanar, multisequence imaging is performed without contrast. There is extensive marrow edema in the distal tibia extending along the tibial plafond. There is a no ndisplaced fracture involving the medial malleolus with partial healing. There is fluid along the fra cture site. There is small amount of marrow edema in the very distal fibula. Mild flattening and loss of the normal contour of the medial talar dome consistent with an osteochondral lesion. Cortical irr egularity extends over a width of 10 mm. No loose bodies identified. There is mild narrowing of the a nkle joint. There is soft tissue edema surrounding the ankle. There is also small amount of marrow edema within t he talus. Small amount of edema within the anterior calcaneal process and the cuboid. Normal Achilles tendon. No joint effusion. Extensor and flexor tendons are normal course and caliber with no tears. Normal deltoid ligament. There is some increased T2 signal within the anterior talofib ular ligament. IMPRESSION: 1. Marrow edema in the distal tibia involving the tibial plafond with partially healed, nondisplaced fracture of the medial malleolus. 2. Small amount of edema in the very distal fibular tip, mid talus, anterior calcaneal process and th e cuboid. May be posttraumatic or due to altered weightbearing. 3. 10 mm osteochondral defect along the medial talar dome. 4. Soft tissue edema at the ankle. Mild sprain anterior talofibular ligament.
== END 2023-08-13 08:52 | disposition home or self-care (01) ==
LOC: RAD 08:52
PROVIDERS: PCP Family Medicine; Visit Provider Podiatrist Foot & Ankle Surgery
DX: S82.55XA Nondisplaced fracture of medial malleolus of left tibia, initial encounter for closed fracture (principal); S93.492A Sprain of other ligament of left ankle, initial encounter; X58.XXXA Exposure to other specified factors, initial encounter; R53.1 Weakness; R60.0 Localized edema
CPT/HCPCS: 73721

== ENCOUNTER → 2023-08-14 09:19 | Outpatient (BNVA) | payer MEDICARE, MEDICAID, SELFPAY | PROVIDERS: PCP Family Medicine; Visit Provider Podiatrist Foot & Ankle Surgery | DX: M25.572 Pain in left ankle and joints of left foot; M84.372A Stress fracture, left ankle, initial encounter for fracture; M21.372 Foot drop, left foot; Z46.89 Encounter for fitting and adjustment of other specified devices | CPT/HCPCS: 97760; 99213; L1902 ==

== ENCOUNTER 2023-08-14 10:33 | Outpatient (CLI) | payer MEDICARE, MEDICAID, SELFPAY | END 2023-08-14 10:34 | disposition home or self-care (01) | LOC: SPT 10:34 | PROVIDERS: PCP Family Medicine; Visit Provider Podiatrist Foot & Ankle Surgery | DX: Z46.89 Encounter for fitting and adjustment of other specified devices (principal); M25.572 Pain in left ankle and joints of left foot | CPT/HCPCS: 97760; L1902 ==

== ENCOUNTER → 2023-08-21 17:29 | Outpatient (BNVA) | payer MEDICARE, MEDICAID, SELFPAY | PROVIDERS: Visit Provider Family Medicine | DX: J02.9 Acute pharyngitis, unspecified (principal) | CPT/HCPCS: 87880 ==

== ENCOUNTER 2023-08-27 06:00 | Outpatient (RCR) | payer MEDICARE, MEDICAID, SELFPAY | END 2023-09-14 23:59 | disposition home or self-care (01) | LOC: TPT 06:00 | PROVIDERS: Visit Provider Podiatrist Foot & Ankle Surgery | DX: M21.372 Foot drop, left foot (principal); M62.81 Muscle weakness (generalized) | CPT/HCPCS: 97163 ==

== ENCOUNTER 2023-09-15 06:00 | Outpatient (RCR) | payer MEDICARE, SELFPAY | END 2023-10-15 23:59 | disposition home or self-care (01) | LOC: TPT 06:00 | PROVIDERS: PCP Family Medicine; Visit Provider Podiatrist Foot & Ankle Surgery | DX: M21.372 Foot drop, left foot (principal); M62.81 Muscle weakness (generalized) | CPT/HCPCS: 97110; 97140 ==

== ENCOUNTER → 2023-09-19 09:12 | Outpatient (BNVA) | payer MEDICARE, MEDICAID, SELFPAY | PROVIDERS: Visit Provider Podiatrist Foot & Ankle Surgery | DX: R20.0 Anesthesia of skin; R20.2 Paresthesia of skin; M21.372 Foot drop, left foot | CPT/HCPCS: 99213 ==

== ENCOUNTER → 2023-10-08 10:00 | Outpatient (BNVA) | payer MEDICARE, MEDICAID, SELFPAY | PROVIDERS: PCP Family Medicine; Visit Provider Family Medicine | DX: M21.371 Foot drop, right foot (principal); I10 Essential (primary) hypertension; E03.9 Hypothyroidism, unspecified; E55.9 Vitamin D deficiency, unspecified; D51.9 Vitamin B12 deficiency anemia, unspecified; M48.00 Spinal stenosis, site unspecified; M21.379 Foot drop, unspecified foot | CPT/HCPCS: 80053; 80061; 82306; 82607; 84443; 85025 ==

== ENCOUNTER → 2023-10-15 09:46 | Outpatient (BNVA) | payer MEDICARE, MEDICAID, SELFPAY | PROVIDERS: PCP Family Medicine; Visit Provider Psychiatry & Neurology Neurology | DX: D49.2 Neoplasm of unspecified behavior of bone, soft tissue, and skin (principal); R29.898 Other symptoms and signs involving the musculoskeletal system; M54.9 Dorsalgia, unspecified; R25.2 Cramp and spasm | CPT/HCPCS: 36415; 82435; 82565; 82607; 83735; 84132; 84520; 85025; 99203 ==

== ENCOUNTER 2023-10-16 06:00 | Outpatient (RCR) | payer MEDICARE, SELFPAY | END 2023-11-13 23:59 | disposition home or self-care (01) | LOC: TPT 06:00 | PROVIDERS: PCP Family Medicine; Visit Provider Podiatrist Foot & Ankle Surgery | DX: M21.372 Foot drop, left foot (principal); M62.81 Muscle weakness (generalized) | CPT/HCPCS: 97110; 97140 ==

== ENCOUNTER → 2023-10-31 08:30 | Outpatient (BNVA) | payer MEDICARE, SELFPAY | PROVIDERS: PCP Family Medicine; Visit Provider Podiatrist Foot & Ankle Surgery | DX: R20.0 Anesthesia of skin; R20.2 Paresthesia of skin; M21.371 Foot drop, right foot | CPT/HCPCS: 99213 ==

== ENCOUNTER 2023-11-14 06:00 | Outpatient (RCR) | payer MEDICARE, SELFPAY | END 2023-12-14 23:59 | disposition home or self-care (01) | LOC: TPT 06:00 | PROVIDERS: PCP Family Medicine; Visit Provider Podiatrist Foot & Ankle Surgery | DX: M21.372 Foot drop, left foot (principal); M62.81 Muscle weakness (generalized) | CPT/HCPCS: 97110; 97140 ==

== ENCOUNTER → 2023-11-28 11:55 | Outpatient (BNVA) | payer MEDICARE, MEDICAID, SELFPAY | PROVIDERS: PCP Family Medicine; Visit Provider Family Medicine | DX: R05.9 Cough, unspecified (principal); R07.9 Chest pain, unspecified | CPT/HCPCS: 71046 ==

== ENCOUNTER 2023-12-04 14:19 | Outpatient (CLI) | payer MEDICARE, MEDICAID, SELFPAY ==
--- NOTE | 2023-12-04 14:00 | MM_ITS ---
WS: [id number] BILATERAL 3D TOMOSYNTHESIS DIGITAL DIAGNOSTIC MAMMOGRAPHY WITH CAD CLINICAL INFORMATION: BR PAIN HISTORY: LEFT breast lumps and pain COMPARISON: New baseline TECHNIQUE: Bilateral CC, MLO, and ML views. FINDINGS: Fatty replaced breasts bilaterally. RIGHT breast implant appears intact with capsular calcifications. Pain and palpable markers LEFT breast. Normal underlying parenchymal tissue. Ultrasound of these are as is pending. No other suspicious abnormalities. ULTRASOUND BREAST LEFT TECHNIQUE: Ultrasound left breast focused area of concern. CLINICAL INFORMATION: BR PAIN FINDINGS: Ultrasound LEFT breast areas of palpable concern and pain. Ultrasound at the 12 o'clock position, 2 t o 4 o'clock position, and retroareolar LEFT breast. Normal underlying parenchymal tissue. No cystic o r solid lesions. No suspicious lesions to target for biopsy. IMPRESSION: MM/[place] [id number] BI-RADS: 2-Benign FOLLOW UP: 1 Year Follow-up Recommend return to annual screening mammography.
--- NOTE | 2023-12-04 14:23 | US_ITS ---
WS: [id number] BILATERAL 3D TOMOSYNTHESIS DIGITAL DIAGNOSTIC MAMMOGRAPHY WITH CAD CLINICAL INFORMATION: BR PAIN HISTORY: LEFT breast lumps and pain COMPARISON: New baseline TECHNIQUE: Bilateral CC, MLO, and ML views. FINDINGS: Fatty replaced breasts bilaterally. RIGHT breast implant appears intact with capsular calcifications. Pain and palpable markers LEFT breast. Normal underlying parenchymal tissue. Ultrasound of these are as is pending. No other suspicious abnormalities. ULTRASOUND BREAST LEFT TECHNIQUE: Ultrasound left breast focused area of concern. CLINICAL INFORMATION: BR PAIN FINDINGS: Ultrasound LEFT breast areas of palpable concern and pain. Ultrasound at the 12 o'clock position, 2 t o 4 o'clock position, and retroareolar LEFT breast. Normal underlying parenchymal tissue. No cystic o r solid lesions. No suspicious lesions to target for biopsy. IMPRESSION: US/US breast LT limited* [id number] BI-RADS: 2-Benign FOLLOW UP: 1 Year Follow-up Recommend return to annual screening mammography.
== END 2023-12-04 14:20 | disposition home or self-care (01) ==
LOC: RAD 14:20
PROVIDERS: PCP Family Medicine; Visit Provider Obstetrics & Gynecology
DX: N64.4 Mastodynia (principal); Z98.82 Breast implant status; N63.25 Unspecified lump in the left breast, overlapping quadrants; N63.42 Unspecified lump in left breast, subareolar
CPT/HCPCS: 76642; 77062; G0279

== ENCOUNTER → 2023-12-09 11:15 | Outpatient (BNVA) | payer MEDICARE, MEDICAID, SELFPAY | PROVIDERS: PCP Family Medicine; Visit Provider Obstetrics & Gynecology | DX: N83.209 Unspecified ovarian cyst, unspecified side (principal) | CPT/HCPCS: 76830 ==

== ENCOUNTER → 2023-12-17 10:31 | Outpatient (BNVA) | payer MEDICARE, MEDICAID, SELFPAY | PROVIDERS: PCP Family Medicine; Referring Provider Family Medicine; Visit Provider Internal Medicine Cardiovascular Disease | DX: R00.0 Tachycardia, unspecified (principal); I49.1 Atrial premature depolarization; I49.3 Ventricular premature depolarization | CPT/HCPCS: 93242 ==

== ENCOUNTER → 2023-12-25 17:02 | Outpatient (BNVA) | payer MEDICARE, MEDICAID, SELFPAY | PROVIDERS: PCP Family Medicine; Visit Provider Nurse Practitioner Family | DX: J45.909 Unspecified asthma, uncomplicated (principal); J06.9 Acute upper respiratory infection, unspecified; R05.9 Cough, unspecified; J45.21 Mild intermittent asthma with (acute) exacerbation | CPT/HCPCS: 80053; 85025 ==

== ENCOUNTER → 2023-12-26 13:16 | Outpatient (BNVA) | payer MEDICARE, MEDICAID, SELFPAY | PROVIDERS: PCP Family Medicine; Visit Provider Nurse Practitioner Family | DX: J45.909 Unspecified asthma, uncomplicated (principal) | CPT/HCPCS: 82785; 86003 ==

== ENCOUNTER → 2024-11-11 09:45 | Outpatient (BNVA) | payer MEDICARE, MEDICAID, SELFPAY | PROVIDERS: Family Provider Nurse Practitioner Family; PCP Nurse Practitioner Family; Visit Provider Orthopaedic Surgery | DX: M54.9 Dorsalgia, unspecified (principal) | CPT/HCPCS: 72110; 99204 ==

== ENCOUNTER → 2024-11-17 13:03 | Outpatient (BNVA) | payer MEDICARE, MEDICAID, SELFPAY | PROVIDERS: PCP Nurse Practitioner Family; Visit Provider Nurse Practitioner Family | DX: F32.1 Major depressive disorder, single episode, moderate (principal); Z79.891 Long term (current) use of opiate analgesic; I10 Essential (primary) hypertension; E66.9 Obesity, unspecified; E55.9 Vitamin D deficiency, unspecified | CPT/HCPCS: 80053; 80061; 82306; 82607; 83036; 83735; 84443; 85025 ==

== ENCOUNTER → 2024-11-24 17:31 | Outpatient (BNVA) | payer MEDICARE, MEDICAID, SELFPAY | PROVIDERS: PCP Nurse Practitioner Family | DX: M77.32 Calcaneal spur, left foot (principal); M79.672 Pain in left foot; W19.XXXA Unspecified fall, initial encounter | CPT/HCPCS: 73630 ==

== ENCOUNTER 2024-11-25 14:23 | Outpatient (CLI) | payer MEDICARE, MEDICAID, SELFPAY ==
--- NOTE | 2024-11-25 15:15 | MR_ITS ---
WS: [id number] MRI LUMBAR SPINE NONCONTRAST TECHNIQUE: Sagittal T1, T2 and STIR imaging. Axial T1 and T2 imaging. CLINICAL INFORMATION: Back PAin COMPARISON: 2020 FINDINGS: Mild lumbar curve. No acute compression. Disc bulging worse at L2-L3 L3-L4 and L4-L5. Disc desiccation worse at L3-4. L1-L2: Normal L2-L3: Mild annular bulging with slight impingement LEFT subarticular recess and mild LEFT foraminal narrowing. LEFT hemilaminectomy. L3-L4: Disc desiccation with mild disc bulging. Narrowing of the LEFT greater than RIGHT subarticular recess. Moderate LEFT proximal foraminal narrowing appears progressed. Impingement exiting LEFT L3 nerve root. Mild RIGHT foraminal narrowing. Moderate facet arthropathy. L4-L5: Mild annular bulging. Slight effacement of the ventral thecal sac. Narrowing of the LEFT greater than RIGHT subarticular recess. Mild LEFT greater than RIGHT foraminal narrowing. Mild facet arthropathy. L5-S1: Mild annular bulging. Slight effacement of the ventral thecal sac. Spinal canal and foramen are patent. Mild facet arthropathy. Visualized pelvic bony structures: Normal. Paravertebral soft tissues: Normal. MR/MR lumbar spine wo con* [id number] IMPRESSION: 1. Reported history of chordoma. No evidence of recurrent mass or tumor on thi s noncontrast study 2. Narrowing of the LEFT L1-2 and LEFT L3-4 subarticular recess. 3. Moderate LEFT L3-4 foraminal narrowing appears progressed. 4. Small central protrusion L4-5 with narrowing of the LEFT greater than RIGHT subarticular recess and mild LEFT foraminal narrowing.
== END 2024-11-25 14:24 | disposition home or self-care (01) ==
PROVIDERS: PCP Nurse Practitioner Family; Visit Provider Orthopaedic Surgery
DX: M48.061 Spinal stenosis, lumbar region without neurogenic claudication (principal); Z87.898 Personal history of other specified conditions; M51.26 Other intervertebral disc displacement, lumbar region; M43.8X6 Other specified deforming dorsopathies, lumbar region; M51.369 Other intervertebral disc degeneration, lumbar region without mention of lumbar back pain or lower extremity pain; Z98.890 Other specified postprocedural states; M47.896 Other spondylosis, lumbar region; M51.379 Other intervertebral disc degeneration, lumbosacral region without mention of lumbar back pain or lower extremity pain; M47.897 Other spondylosis, lumbosacral region
CPT/HCPCS: 72148

== ENCOUNTER → 2024-12-01 10:38 | Outpatient (BNVA) | payer MEDICARE, MEDICAID, SELFPAY | PROVIDERS: PCP Nurse Practitioner Family; Visit Provider Nurse Practitioner Family | DX: I10 Essential (primary) hypertension (principal) | CPT/HCPCS: 80053 ==

== ENCOUNTER → 2024-12-02 08:14 | Outpatient (BNVA) | payer MEDICARE, MEDICAID, SELFPAY | PROVIDERS: PCP Nurse Practitioner Family; Visit Provider Orthopaedic Surgery | DX: M54.9 Dorsalgia, unspecified (principal); M48.062 Spinal stenosis, lumbar region with neurogenic claudication; Z01.818 Encounter for other preprocedural examination | CPT/HCPCS: 36415; 81001; 85025; 99214 ==

== ENCOUNTER 2024-12-14 06:00 | Outpatient (RCR) | payer MEDICARE, SELFPAY | END 2025-01-12 23:59 | disposition home or self-care (01) | LOC: TPT 06:00 | PROVIDERS: Visit Provider Orthopaedic Surgery | DX: M54.9 Dorsalgia, unspecified (principal); G89.29 Other chronic pain | CPT/HCPCS: 97110; 97161 ==

== ENCOUNTER → 2024-12-14 14:05 | Outpatient (BNVA) | payer MEDICARE, SELFPAY | PROVIDERS: PCP Nurse Practitioner Family; Visit Provider Orthopaedic Surgery | DX: F17.210 Nicotine dependence, cigarettes, uncomplicated (principal); M48.062 Spinal stenosis, lumbar region with neurogenic claudication | CPT/HCPCS: 80323 ==

== ENCOUNTER 2025-01-13 06:30 | Outpatient (RCR) | payer MEDICARE, SELFPAY | END 2025-01-31 09:22 | disposition home or self-care (01) | LOC: TPT 06:30 | PROVIDERS: PCP Nurse Practitioner Family; Visit Provider Orthopaedic Surgery | DX: M54.9 Dorsalgia, unspecified (principal); G89.29 Other chronic pain | CPT/HCPCS: 97110 ==

== ENCOUNTER → 2025-01-26 15:35 | Outpatient (BNVA) | payer MEDICARE, SELFPAY | PROVIDERS: PCP Nurse Practitioner Family; Visit Provider Nurse Practitioner Family | DX: M25.571 Pain in right ankle and joints of right foot (principal) | CPT/HCPCS: 73610 ==

== ENCOUNTER 2025-02-13 06:30 | Outpatient (RCR) | payer MEDICARE, MEDICAID, SELFPAY | END 2025-03-14 23:59 | disposition home or self-care (01) | LOC: SOT 06:30 | PROVIDERS: Visit Provider Nurse Practitioner Family | DX: M54.9 Dorsalgia, unspecified (principal); M21.379 Foot drop, unspecified foot; M62.81 Muscle weakness (generalized) | CPT/HCPCS: 97167 ==

== ENCOUNTER 2025-02-24 16:23 | Outpatient (CLI) | payer MEDICARE, MEDICAID, SELFPAY | END 2025-02-24 16:24 | disposition home or self-care (01) | PROVIDERS: PCP Nurse Practitioner Family; Visit Provider Orthopaedic Surgery | DX: Z01.818 Encounter for other preprocedural examination (principal) | CPT/HCPCS: 80323 ==

== ENCOUNTER → 2025-06-01 11:54 | Outpatient (BNVA) | payer MEDICARE, OTHER, SELFPAY | PROVIDERS: PCP Nurse Practitioner Family; Visit Provider Nurse Practitioner Family | DX: E55.9 Vitamin D deficiency, unspecified (principal); R53.83 Other fatigue; E66.9 Obesity, unspecified; F32.1 Major depressive disorder, single episode, moderate | CPT/HCPCS: 80053; 80061; 82306; 82607; 84443; 85025 ==

== ENCOUNTER → 2025-06-28 08:45 | Outpatient (BNVA) | payer MEDICARE, MEDICAID, SELFPAY | PROVIDERS: PCP Nurse Practitioner Family; Visit Provider Internal Medicine | DX: Q89.1 Congenital malformations of adrenal gland (principal); E27.9 Disorder of adrenal gland, unspecified; R63.5 Abnormal weight gain; E28.2 Polycystic ovarian syndrome; C41.2 Malignant neoplasm of vertebral column | CPT/HCPCS: 99204 ==

== ENCOUNTER → 2025-07-20 08:42 | Outpatient (BNVA) | payer MEDICARE, MEDICAID, SELFPAY | PROVIDERS: PCP Nurse Practitioner Family; Visit Provider Internal Medicine | DX: E27.9 Disorder of adrenal gland, unspecified (principal) | CPT/HCPCS: 80053; 82088; 84244 ==

== ENCOUNTER 2025-07-21 08:35 | Outpatient (CLI) | payer MEDICARE, MEDICAID, SELFPAY ==
[2025-07-21 10:02] LABS: Creatinine 24 Hour Urine 868.0 mg/dL (601-1689); Total Volume Urine 700 ml
== END 2025-07-21 08:36 | disposition home or self-care (01) ==
LOC: LAB 08:37
PROVIDERS: PCP Nurse Practitioner Family; Visit Provider Internal Medicine
DX: E27.9 Disorder of adrenal gland, unspecified (principal)
CPT/HCPCS: 82384; 82530; 82570